=== PATIENT | male | born 1940 | race Caucasian/White ===

== ENCOUNTER 2025-10-28 13:02 | Inpatient (IN) ==
--- NOTE | 2025-10-28 13:48 | Emergency Department Note ---
Impression & Plan Weakness ED Provider Note CHIEF COMPLAINT: Weakness HISTORY OF PRESENTING ILLNESS: The patient is a pleasant, well-appearing, 85-year-old male with past medical history of chronic atrial fibrillation, on , who arrives to the emergency department with family for evaluation of left-sided weakness that started Friday. Patient reports having a dental extraction performed on Friday, with local anesthesia. He states since that time he has noted some left-sided weakness, with slight left facial droop, and slurred speech that reportedly began this morning. Patient states the symptoms have worsened over the last week, and today believes he requires evaluation for this. The patient was seen in the emergency department yesterday for evaluation of weakness and confusion. Patient was initially concern for a bladder infection, however does not report dysuria, fever. Family was concerned, and believes he requires evaluation for neurological event. REVIEW OF SYSTEMS: See HPI for pertinent positives and pertinent negatives. ALLERGIES: See below MEDICATIONS: See below PAST MEDICAL HISTORY: See below PHYSICAL EXAM: VITALS: Vitals are noted on the nurse's note and reviewed by myself. Vital signs stable. GENERAL: 85-year-old male, in no acute distress, nondiaphoretic, well-developed well-nourished. SKIN: The skin was without rashes, erythema, edema, or bruising. HEAD: Normocephalic atraumatic. EARS: External auditory canals clear, tympanic membranes pearly marcus without erythema or effusion bilaterally. No hemotympanum. EYES: Pupils equal round and reactive to light and accommodation. Conjunctivae without injection, sclerae without icterus. Extraocular movements intact. No nystagmus. NOSE: Patent, turbinates without inflammation or discharge. No sinus tenderness. MOUTH: Mucous membranes moist. No tonsillar hypertrophy. Pharynx without erythema or exudate. Uvula midline. Airway patent. Tongue does not deviate. NECK: Supple without nuchal rigidity. No lymphadenopathy. Cervical spine is nontender. No JVD. HEART: Irregular rate and rhythm without murmurs gallops or rubs. LUNGS: Clear to auscultation bilaterally without wheezes, rales or rhonchi. No retractions or accessory muscle use. ABDOMEN: Positive bowel sounds x 4. Soft, nontender, without masses or organomegaly. Isabel sign negative. No guarding or rebound tenderness. MUSCULOSKELETAL: No muscle atrophy, erythema, or edema noted. LUE strength 3/5, LLE strength 3/5. RUE, RLE, strength 5/5. Sensation intact to dull and sharp throughout. NEURO: Patient was alert and oriented to person place and time. No focal neurological deficits. DIFFERENTIAL DIAGNOSIS: Infection, dehydration, metabolic abnormality, hypo/hyperglycemia, electrolyte disturbance, anemia, hypoxia, cardiac sources, intracerebral event, toxicologic, neurologic, as well as other pathologies. ED COURSE AND MEDICAL DECISION MAKING: HISTORY FROM INDEPENDENT HISTORIAN: Family at bedside serving as secondary historian. MONITOR: Continuous air sampling and monitoring: Order was placed for continuous air sampling and monitoring. Patient was placed on the air sampling and monitoring and continuous pulse ox. Patient was noted to be in Atrial fibrillation at an initial rate of 75 bpm per my interpretation. EKG: EKG was interpreted by myself as atrial fibrillation, with nonspecific T wave abnormality. No significant change from previous of the previous day. INTERPRETATION OF LABS: I interpreted the labs with full lab results as below in the lab section of this note. Pertinent lab results discussed in the MDM section below. INTERPRETATION OF IMAGING: Imaging studies were interpreted by myself and read by radiology as per the imaging section of this note. MDM SUMMARY: The patient is a pleasant, 85-year-old male who arrives to the emergency department for evaluation of the above-stated complaint. Stroke workup was obtained, however patient was outside of the window for stroke alert, and telestroke evaluation due to last known well approximately Friday. Saline lock was established, lab work was obtained. CBC shows no leukocytosis, no anemia. Coags within normal limits. CMP is unremarkable, BUN and creatinine baseline for patient kidney function. Initial troponin 17, repeat 18. Urinalysis not concerning for infection. CT imaging of the head, was obtained due to the duration of the patient's symptoms. Imaging per my interpretation shows no hemorrhage, mass effect, or evidence of acute territorial ischemia by criteria. Patient is not a candidate for IV thrombolytics. Chest x-ray imaging was obtained which per my interpretation shows no acute cardiopulmonary process. EKG interpreted by myself as noted above. Patient will require admission for MRI imaging of the brain, to evaluate further for ischemic stroke. Patient was agreeable to admission. [facility] was consulted for admission, and accepted under their care. Please refer to their documentation for further patient workup and care. DIAGNOSIS: Weakness The patient's case was discussed with Dr. Sarkar, who agreed with my evaluation and treatment plan. The chart was completed utilizing [employer] Speech voice recognition software. Grammatical errors, random word insertions, pronoun errors, and incomplete sentences are an occasional consequence of this system due to software limitations, ambient noise, and hardware issues. Any formal questions or concerns about the content, text, or information contained within the body of this dictation should be directly addressed to the provider for clarification. Attending Attestation: I Guido Sarkar MD I have reviewed the advanced practitioner's documentation and agree with the plan of care. I accept the responsibility for the associated risk of managing the patient. I performed a substantive portion of the visit including involvement in all aspects of medical decision making. Evaluated and saw this patient the day previous. Evidently has developed from generalized weakness more left-sided weakness. Will be brought in for further evaluation for possible occult stroke given more focal deficits now. 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) Shingles Ischemic cardiomyopathy Hyperlipidemia Diabetes mellitus, type 2 Hypertension CAD (coronary artery disease) No blood products Surgical History Status post endovascular aneurysm repair (EVAR) (2014) Hx of parathyroidectomy History of tooth extraction History of quadruple bypass (2006) Family History Other No family history of adverse response to anesthesia Social History Smoking Status: Former smoker Tobacco Type: Cigarettes Second Hand Exposure: No; Do You Dip or Chew Tobacco: No; Hx Alcohol Use: No Hx Substance Use: No Preferred Language: Austrian Communication Ability: Effective Colored Liquid Plastic Applier Required: No Beliefs That Will Affect Care: Cheondoism Cheondoism Beliefs: Gnosticism- Will not accept blood products Current Living Situation: Family Current Living Situation Comment: grandson Feels Safe at Home: Yes Assistive Devices: Cane and Walker Allergies Allergies Allergy/AdvReac Type Severity Reaction Status Date / Time banana AdvReac Unknown Told to Unverified 09/01/25 15:10 avoid due to taking Metoprolol Succinate Home Meds Home Medications Medication Instructions Recorded Confirmed metoprolol succinate 50 mg 25 mg PO HS 04/06/25 10/28/25 tablet,extended release 24 hr metformin 500 mg tablet 1,000 mg PO BID 10/27/25 10/28/25 Previous Rx's Medication Instructions Recorded levetiracetam 500 mg tablet 500 mg PO BID #60 tabs 09/01/25 (Keppra) amoxicillin 500 mg-potassium 1 tab PO BID #10 tabs 11/08/25 clavulanate 125 mg tablet (Augmentin) apixaban 2.5 mg tablet (Eliquis) 2.5 mg PO BID #60 tabs 11/08/25 aspirin 81 mg tablet,delayed 81 mg PO DAILY #30 tabs 11/08/25 release atorvastatin 40 mg tablet 80 mg (2 x 40 mg) PO QAM #30 tabs 11/08/25 ibuprofen 400 mg tablet 400 mg PO Q8H 3 days #9 tabs 11/08/25 Results & Data (ED) Vital Signs Vital Signs - 24 hr 10/28/25 13:08 10/28/25 13:14 10/28/25 13:25 Temperature 36.6 C Temperature Source Temporal Artery Scan Pulse Rate 84 76 Respiratory Rate 18 Respiratory Depth Normal Blood Pressure 166/96 H Blood Pressure Mean 119 Pulse Oximetry 97 98 Oxygen Delivery Method Room Air Room Air Sepsis Recent Fever Within 48 Hours No Sepsis New/Unexplained Change in Mental Status No Sepsis Action Taken by Nursing No Action Required Home Medications Current Medication List: was personally reviewed by me Laboratory Data Attestation: I reviewed the patient's lab results. 11/08/25 10:19 11/08/25 10:19 Lab Results 10/28/25 10/28/25 10/28/25 Range/Units 13:40 18:24 18:25 WBC 5.95 (4.8-10.8) K/ul RBC 5.33 (4.70-6.10) M/uL Hgb 16.5 (14.0-18.0) g/dL Hct 48.4 (42.0-52.0) % MCV 90.8 (80.0-100.0) fL MCH 31.0 (25.0-34.0) pg MCHC 34.1 (32.0-36.0) g/dL RDW Std Deviation 39.8 (36.4-46.3) fL RDW Coeff of Cierra 12.0 (11.5-14.5) % Plt Count 192 (130-400) K/uL MPV 9.9 (9.4-12.4) fL Immature Gran % (Auto) 0.2 % Neut % (Auto) 70.7 % Lymph % (Auto) 21.7 % [place] % (Auto) 6.6 % Eos % (Auto) 0.3 % Baso % (Auto) 0.5 % Neut # (Auto) 4.21 (1.40-6.50) K/uL Lymph # (Auto) 1.29 (1.20-3.40) K/uL [place] # (Auto) 0.39 (0.11-0.59) K/uL Eos # (Auto) 0.02 (0.00-0.50) K/uL Baso # (Auto) 0.03 (0.00-0.20) K/uL Immature Gran # (Auto) 0.01 (0.01-0.20) K/uL PT Cancelled 11.5 INR Cancelled 1.1 APTT Cancelled 28 PTT Ratio Cancelled 1.0 Sodium 135 L (136-145) mmol/L Potassium 5.0 (3.5-5.1) mmol/L Chloride 102 (98-107) mmol/L Carbon Dioxide 25 (21-32) mmol/L Anion Gap 8 (3-11) BUN 34 H (6-23) mg/dl Creatinine 1.51 H (0.6-1.4) mg/dl Est Cr Clr Drug Dosing 34.4 ml/min eGFR 45.26 BUN/Creatinine Ratio 22.5 H (10-20) Glucose 183 H (70-99(Fasting)) mg/dl POC Glucose (70-99) mg/dl Estimat Average Glucose mg/dl Hemoglobin A1c (4.5-5.6) % Calcium 10.0 (8.6-10.3) mg/dl Magnesium 2.1 (1.7-2.4) mg/dl Total Bilirubin 1.0 (0.2-1.0) mg/dl AST 20 (13-39) U/L ALT 9 (7-52) U/L Alkaline Phosphatase 62 (34-104) U/L Troponin I High Sens 17.0 D 18.0 (0-20) pg/ml Total Protein 8.0 (6.0-8.3) gm/dl Albumin 4.3 (3.4-5.0) gm/dl Globulin 3.7 (2.5-4.0) gm/dl Albumin/Globulin Ratio 1.2 (0.9-2) Triglycerides (0-150) mg/dl Cholesterol (0-200) mg/dl LDL Cholesterol, Calc mg/dl VLDL Cholesterol, Calc (0-30) mg/dl HDL Cholesterol mg/dl Cholesterol/HDL Ratio (0-5) Urine Color Urine Appearance (Clear) Urine pH (4.5-7.5) Ur Specific [place] (1.000-1.030) Urine Protein (Negative) Urine Glucose (UA) (Negative) Urine Ketones (Negative) Urine Blood (Negative) Urine Nitrite (Negative) Urine Bilirubin (Negative) Urine Urobilinogen (Negative) Ur Leukocyte Esterase (Negative) Urine WBC (Auto) (0-5) /hpf Urine RBC (Auto) (0-2) /hpf U Hyaline Cast (Auto) (0-2) /lpf U Epithel Cells (Auto) (0-2) /hpf Urine Bacteria (Auto) (None Seen) Urine Comment 10/28/25 10/28/25 10/29/25 Range/Units 18:50 Unknown 06:09 WBC 4.43 L (4.8-10.8) K/ul RBC 5.02 (4.70-6.10) M/uL Hgb 15.3 (14.0-18.0) g/dL Hct 45.1 (42.0-52.0) % MCV 89.8 (80.0-100.0) fL MCH 30.5 (25.0-34.0) pg MCHC 33.9 (32.0-36.0) g/dL RDW Std Deviation 39.9 (36.4-46.3) fL RDW Coeff of Cierra 12.1 (11.5-14.5) % Plt Count 165 (130-400) K/uL MPV 9.8 (9.4-12.4) fL Immature Gran % (Auto) 0.5 % Neut % (Auto) 55.4 % Lymph % (Auto) 30.5 % [place] % (Auto) 11.1 % Eos % (Auto) 1.6 % Baso % (Auto) 0.9 % Neut # (Auto) 2.46 (1.40-6.50) K/uL Lymph # (Auto) 1.35 (1.20-3.40) K/uL [place] # (Auto) 0.49 (0.11-0.59) K/uL Eos # (Auto) 0.07 (0.00-0.50) K/uL Baso # (Auto) 0.04 (0.00-0.20) K/uL Immature Gran # (Auto) 0.02 (0.01-0.20) K/uL PT INR APTT PTT Ratio Sodium 138 (136-145) mmol/L Potassium 4.1 (3.5-5.1) mmol/L Chloride 105 (98-107) mmol/L Carbon Dioxide 25 (21-32) mmol/L Anion Gap 8 (3-11) BUN 32 H (6-23) mg/dl Creatinine 1.55 H (0.6-1.4) mg/dl Est Cr Clr Drug Dosing 33.2 ml/min eGFR 43.86 BUN/Creatinine Ratio 20.6 H (10-20) Glucose 141 H (70-99(Fasting)) mg/dl POC Glucose 99 (70-99) mg/dl Estimat Average Glucose 166 mg/dl Hemoglobin A1c 7.4 H (4.5-5.6) % Calcium 9.1 (8.6-10.3) mg/dl Magnesium 2.1 (1.7-2.4) mg/dl Total Bilirubin (0.2-1.0) mg/dl AST (13-39) U/L ALT (7-52) U/L Alkaline Phosphatase (34-104) U/L Troponin I High Sens (0-20) pg/ml Total Protein (6.0-8.3) gm/dl Albumin (3.4-5.0) gm/dl Globulin (2.5-4.0) gm/dl Albumin/Globulin Ratio (0.9-2) Triglycerides 86 (0-150) mg/dl Cholesterol 230 H (0-200) mg/dl LDL Cholesterol, Calc 175 mg/dl VLDL Cholesterol, Calc 17 (0-30) mg/dl HDL Cholesterol 38 mg/dl Cholesterol/HDL Ratio 6.1 H (0-5) Urine Color Yellow Urine Appearance Clear (Clear) Urine pH 5.5 (4.5-7.5) Ur Specific [place] 1.009 (1.000-1.030) Urine Protein Trace H (Negative) Urine Glucose (UA) Negative (Negative) Urine Ketones Negative (Negative) Urine Blood 1+ H (Negative) Urine Nitrite Negative (Negative) Urine Bilirubin Negative (Negative) Urine Urobilinogen Negative (Negative) Ur Leukocyte Esterase Negative (Negative) Urine WBC (Auto) 0-5 (0-5) /hpf Urine RBC (Auto) 0-2 (0-2) /hpf U Hyaline Cast (Auto) 0-2 (0-2) /lpf U Epithel Cells (Auto) 0-2 (0-2) /hpf Urine Bacteria (Auto) None Seen (None Seen) Urine Comment 10/29/25 Range/Units 08:09 WBC (4.8-10.8) K/ul RBC (4.70-6.10) M/uL Hgb (14.0-18.0) g/dL Hct (42.0-52.0) % MCV (80.0-100.0) fL MCH (25.0-34.0) pg MCHC (32.0-36.0) g/dL RDW Std Deviation (36.4-46.3) fL RDW Coeff of [place] (11.5-14.5) % Plt Count (130-400) K/uL MPV (9.4-12.4) fL Immature Gran % (Auto) % Neut % (Auto) % Lymph % (Auto) % [place] % (Auto) % Eos % (Auto) % Baso % (Auto) % Neut # (Auto) (1.40-6.50) K/uL Lymph # (Auto) (1.20-3.40) K/uL [place] # (Auto) (0.11-0.59) K/uL Eos # (Auto) (0.00-0.50) K/uL Baso # (Auto) (0.00-0.20) K/uL Immature Gran # (Auto) (0.01-0.20) K/uL PT INR APTT PTT Ratio Sodium (136-145) mmol/L Potassium (3.5-5.1) mmol/L Chloride (98-107) mmol/L Carbon Dioxide (21-32) mmol/L Anion Gap (3-11) BUN (6-23) mg/dl Creatinine (0.6-1.4) mg/dl Est Cr Clr Drug Dosing ml/min eGFR BUN/Creatinine Ratio (10-20) Glucose (70-99(Fasting)) mg/dl POC Glucose 142 H (70-99) mg/dl Estimat Average Glucose mg/dl Hemoglobin A1c (4.5-5.6) % Calcium (8.6-10.3) mg/dl Magnesium (1.7-2.4) mg/dl Total Bilirubin (0.2-1.0) mg/dl AST (13-39) U/L ALT (7-52) U/L Alkaline Phosphatase (34-104) U/L Troponin I High Sens (0-20) pg/ml Total Protein (6.0-8.3) gm/dl Albumin (3.4-5.0) gm/dl Globulin (2.5-4.0) gm/dl Albumin/Globulin Ratio (0.9-2) Triglycerides (0-150) mg/dl Cholesterol (0-200) mg/dl LDL Cholesterol, Calc mg/dl VLDL Cholesterol, Calc (0-30) mg/dl HDL Cholesterol mg/dl Cholesterol/HDL Ratio (0-5) Urine Color Urine Appearance (Clear) Urine pH (4.5-7.5) Ur Specific [place] (1.000-1.030) Urine Protein (Negative) Urine Glucose (UA) (Negative) Urine Ketones (Negative) Urine Blood (Negative) Urine Nitrite (Negative) Urine Bilirubin (Negative) Urine Urobilinogen (Negative) Ur Leukocyte Esterase (Negative) Urine WBC (Auto) (0-5) /hpf Urine RBC (Auto) (0-2) /hpf U Hyaline Cast (Auto) (0-2) /lpf U Epithel Cells (Auto) (0-2) /hpf Urine Bacteria (Auto) (None Seen) Urine Comment Administered Medications Discontinued Medications Al Hydrox/Mg Hydrox/Simethicone (Aluminum/Magnesium Susp 30 Ml Udc) 15 ml PO Q6H PRN PRN Reason: Heartburn Stop: 12/04/25 20:01 Last Admin: 11/04/25 20:29 Dose: 15 ml Documented By: NINFA Amlodipine Besylate (Amlodipine Besylate 5 Mg Tab) 2.5 mg PO QAM [place] Stop: 11/28/25 10:54 Last Admin: 11/08/25 09:05 Dose: 2.5 mg Documented By: carla Admin: 11/07/25 07:59 Dose: 2.5 mg Documented By: Admin: 11/06/25 07:49 Dose: 2.5 mg Documented By: Admin: 11/05/25 08:01 Dose: 2.5 mg Documented By: Admin: 11/04/25 08:11 Dose: 2.5 mg Documented By: Admin: 11/03/25 08:49 Dose: 5 mg Documented By: Admin: 11/02/25 09:18 Dose: 5 mg Documented By: Admin: 11/01/25 08:23 Dose: 2.5 mg Documented By: nigel Admin: 10/31/25 07:47 Dose: 2.5 mg Documented By: Admin: 10/30/25 07:42 Dose: 2.5 mg Documented By: Admin: 10/29/25 11:18 Dose: 2.5 mg Documented By: MAITE Apixaban (Apixaban 5 Mg Tablet) 5 mg PO BID [place] Stop: 11/27/25 20:59 Last Admin: 10/29/25 10:11 Dose: 5 mg Documented By: Admin: 10/28/25 21:41 Dose: 5 mg Documented By: CHANDANA Apixaban (Apixaban 2.5 Mg Tab) 2.5 mg PO BID [place] Stop: 11/28/25 20:59 Last Admin: 11/08/25 09:06 Dose: 2.5 mg Documented By: tca Admin: 11/07/25 20:47 Dose: 2.5 mg Documented By: Admin: 11/07/25 07:59 Dose: 2.5 mg Documented By: Admin: 11/06/25 21:29 Dose: 2.5 mg Documented By: Admin: 11/06/25 07:49 Dose: 2.5 mg Documented By: Admin: 11/05/25 20:31 Dose: 2.5 mg Documented By: Admin: 11/05/25 08:01 Dose: 2.5 mg Documented By: Admin: 11/04/25 20:29 Dose: 2.5 mg Documented By: Admin: 11/04/25 08:11 Dose: 2.5 mg Documented By: Admin: 11/03/25 21:29 Dose: 2.5 mg Documented By: Admin: 11/03/25 08:49 Dose: 2.5 mg Documented By: Admin: 11/02/25 19:59 Dose: 2.5 mg Documented By: Admin: 11/02/25 09:17 Dose: 2.5 mg Documented By: Admin: 11/01/25 20:13 Dose: 2.5 mg Documented By: Admin: 11/01/25 08:22 Dose: 2.5 mg Documented By: nigel Admin: 10/31/25 20:23 Dose: 2.5 mg Documented By: Admin: 10/31/25 07:48 Dose: 2.5 mg Documented By: Admin: 10/30/25 20:35 Dose: 2.5 mg Documented By: Admin: 10/30/25 07:45 Dose: 2.5 mg Documented By: AUTH[employer]IV[employer] Admin: 10/29/25 21:02 Dose: 2.5 mg Documented By: MARYANN Aspirin (Aspirin 81 Mg Ectab) 81 mg PO DAILY [place] Stop: 11/27/25 18:38 Last Admin: 11/08/25 09:06 Dose: 81 mg Documented By: tca Admin: 11/07/25 07:59 Dose: 81 mg Documented By: Admin: 11/06/25 07:50 Dose: 81 mg Documented By: Admin: 11/05/25 08:01 Dose: 81 mg Documented By: Admin: 11/04/25 08:10 Dose: 81 mg Documented By: Admin: 11/03/25 08:49 Dose: 81 mg Documented By: Admin: 11/02/25 09:18 Dose: 81 mg Documented By: Admin: 11/01/25 08:23 Dose: 81 mg Documented By: nigel Admin: 10/31/25 07:47 Dose: 81 mg Documented By: Admin: 10/30/25 07:44 Dose: 81 mg Documented By: Admin: 10/29/25 11:18 Dose: 81 mg Documented By: Admin: 10/28/25 19:41 Dose: 81 mg Documented By: CHANDANA Atorvastatin Calcium (Atorvastatin 40 Mg Tab) 40 mg PO QAM [place] Stop: 11/28/25 08:59 Last Admin: 10/30/25 07:44 Dose: 40 mg Documented By: Admin: 10/29/25 10:11 Dose: 40 mg Documented By: MAITE Atorvastatin Calcium (Atorvastatin 40 Mg Tab) 80 mg PO QAM [facility] Stop: 11/29/25 08:59 Last Admin: 11/08/25 09:05 Dose: 80 mg Documented By: carla Admin: 11/07/25 07:59 Dose: 80 mg Documented By: Admin: 11/06/25 07:49 Dose: 80 mg Documented By: Admin: 11/05/25 08:01 Dose: 80 mg Documented By: Admin: 11/04/25 08:10 Dose: 80 mg Documented By: Admin: 11/03/25 08:49 Dose: 80 mg Documented By: Admin: 11/02/25 09:18 Dose: 80 mg Documented By: Admin: 11/01/25 08:22 Dose: 80 mg Documented By: nigel Admin: 10/31/25 07:49 Dose: 80 mg Documented By: Admin: 10/30/25 09:48 Dose: 80 mg Documented By: SAKINA Sodium Chloride (Nss) 1,000 mls @ 80 mls/hr IV .[id number] [place] Stop: 10/29/25 04:44 Last Infusion: 10/29/25 10:14 Dose: Infused Documented By: Admin: 10/28/25 18:18 Dose: 80 mls/hr Documented By: DARLENE Insulin Aspart (Insulin Aspart Per Unit Charge) 0 units SC ACHS [place] Stop: 12/03/25 20:59 Last Admin: 11/08/25 13:51 Dose: Not Given Documented By: carla Co-signed By: PRAFUL Admin: 11/08/25 07:30 Dose: Not Given Documented By: tca Co-signed By: TLM Admin: 11/07/25 22:10 Dose: Not Given Documented By: HARJIT Co-signed By: SHAZIAW Admin: 11/07/25 16:54 Dose: Not Given Documented By: Admin: 11/07/25 12:29 Dose: Not Given Documented By: SHAQUILLE Co-signed By: LMC Admin: 11/07/25 08:00 Dose: Not Given Documented By: Admin: 11/06/25 21:50 Dose: Not Given Documented By: STEFAN Co-signed By: MICHELE Admin: 11/06/25 17:08 Dose: 1 units Documented By: SHAQUILLE Co-signed By: MEHREEN Admin: 11/06/25 11:28 Dose: Not Given Documented By: Admin: 11/06/25 08:39 Dose: Not Given Documented By: Admin: 11/05/25 21:54 Dose: Not Given Documented By: STEFAN Co-signed By: CHILANGO Admin: 11/05/25 16:59 Dose: 1 units Documented By: SHAQUILLE Co-signed By: KRISTINE Admin: 11/05/25 13:12 Dose: 1 units Documented By: ADELINE Co-signed By: SAKINA Admin: 11/05/25 09:14 Dose: Not Given Documented By: Admin: 11/04/25 20:29 Dose: 1 units Documented By: FIORDALIZAF Co-signed By: ACO Admin: 11/04/25 17:04 Dose: Not Given Documented By: Admin: 11/04/25 12:48 Dose: 1 units Documented By: KMC Co-signed By: shaww Admin: 11/04/25 10:10 Dose: Not Given Documented By: Admin: 11/03/25 21:29 Dose: 4 units Documented By: ANJELICA Co-signed By: shubham Levetiracetam (Levetiracetam 500 Mg Tab) 500 mg PO BID [place] Stop: 11/27/25 20:59 Last Admin: 11/08/25 09:04 Dose: 500 mg Documented By: tca Admin: 11/07/25 20:47 Dose: 500 mg Documented By: Admin: 11/07/25 07:59 Dose: 500 mg Documented By: Admin: 11/06/25 21:29 Dose: 500 mg Documented By: Admin: 11/06/25 07:50 Dose: 500 mg Documented By: Admin: 11/05/25 20:31 Dose: 500 mg Documented By: Admin: 11/05/25 08:01 Dose: 500 mg Documented By: Admin: 11/04/25 20:29 Dose: 500 mg Documented By: Admin: 11/04/25 08:11 Dose: 500 mg Documented By: Admin: 11/03/25 21:29 Dose: 500 mg Documented By: Admin: 11/03/25 08:49 Dose: 500 mg Documented By: Admin: 11/02/25 19:59 Dose: 500 mg Documented By: Admin: 11/02/25 09:18 Dose: 500 mg Documented By: Admin: 11/01/25 20:13 Dose: 500 mg Documented By: Admin: 11/01/25 08:22 Dose: 500 mg Documented By: jlz Admin: 10/31/25 20:23 Dose: 500 mg Documented By: Admin: 10/31/25 07:48 Dose: 500 mg Documented By: [employer] Admin: 10/30/25 20:35 Dose: 500 mg Documented By: Admin: 10/30/25 07:44 Dose: 500 mg Documented By: [employer] Admin: 10/29/25 21:01 Dose: 500 mg Documented By: Admin: 10/29/25 10:11 Dose: 500 mg Documented By: Admin: 10/28/25 21:42 Dose: 500 mg Documented By: LCD Metformin HCl (Metformin Hcl 500 Mg Tab) 1,000 mg PO BIDM [place] Stop: 12/03/25 17:39 Last Admin: 11/08/25 08:46 Dose: 1,000 mg Documented By: tca Admin: 11/07/25 16:53 Dose: 1,000 mg Documented By: Admin: 11/07/25 09:16 Dose: 1,000 mg Documented By: Admin: 11/06/25 17:09 Dose: 1,000 mg Documented By: Admin: 11/06/25 07:49 Dose: 1,000 mg Documented By: Admin: 11/05/25 17:08 Dose: 1,000 mg Documented By: Admin: 11/05/25 08:01 Dose: 1,000 mg Documented By: Admin: 11/04/25 17:23 Dose: 1,000 mg Documented By: Admin: 11/04/25 08:09 Dose: 1,000 mg Documented By: KMBasil Admin: 11/03/25 21:12 Dose: Not Given Documented By: ANJELICA Metoprolol Succinate (Metoprolol Succ 25mg Ext Rel Tab) 25 mg PO HS [place] Stop: 11/27/25 20:59 Last Admin: 11/07/25 20:47 Dose: 25 mg Documented By: Admin: 11/06/25 21:29 Dose: 25 mg Documented By: Admin: 11/05/25 20:31 Dose: 25 mg Documented By: Admin: 11/04/25 20:29 Dose: 25 mg Documented By: Admin: 11/03/25 21:29 Dose: 25 mg Documented By: Admin: 11/02/25 19:59 Dose: 25 mg Documented By: Admin: 11/01/25 20:13 Dose: 25 mg Documented By: Admin: 10/31/25 20:23 Dose: 25 mg Documented By: Admin: 10/30/25 20:35 Dose: 25 mg Documented By: Admin: 10/29/25 21:01 Dose: 25 mg Documented By: Admin: 10/28/25 21:41 Dose: 25 mg Documented By: CHANDANA Miscellaneous Information (Stroke Patient Discharge) 1 each N/A NOW STA Stop: 11/08/25 10:37 Last Admin: 11/08/25 11:38 Dose: 1 each Documented By: carla Miscellaneous Information (Stroke Patient Discharge) 1 each N/A NOW STA Stop: 11/08/25 14:47 Last Admin: 11/08/25 15:50 Dose: Not Given Documented By: tca Discharge Plan Visit Data Chief Complaint: Weakness Stated Complaint: PARTIAL WEAK, LT SIDE, CHECK FOR STROKE, CARDIOLOG ED Provider: Guido Sarkar ED Midlevel Provider: Elsa Valentine Discharge Problem: Weakness Patient Disposition: Admitted As Inpatient Condition: Fair Discharge Instructions Interventions: ED Discharge Assessment Last Done: 10/28/25 18:39
[2025-10-28 14:03] LABS: Hematocrit (blood only) 48.4 % (42.0-52.0); Hemoglobin 16.5 g/dL (14.0-18.0); Immature Granulocytes # (auto) 0.01 K/uL (0.01-0.20); Immature Granulocytes % (auto) 0.2 %; Mean Corpuscular Hemoglobin 31.0 pg (25.0-34.0); Mean Corpuscular Volume 90.8 fL (80.0-100.0); Platelet Count 192 K/uL (130-400); RDW Standard Deviation 39.8 fL (36.4-46.3); Red Blood Count 5.33 M/uL (4.70-6.10); White Blood Count 5.95 K/ul (4.8-10.8)
[2025-10-28 14:21] LABS: Alanine Aminotransferase 9.0 U/L (7-52); Albumin Globulin Ratio 1.2 (0.9-2); Albumin Level 4.3 gm/dl (3.4-5.0); Alkaline Phosphatase 62.0 U/L (34-104); Anion Gap 8.0 (3-11); Bilirubin,Total 1.0 mg/dl (0.2-1.0); Blood Urea Nitrogen 34.0 mg/dl (6-23); Calcium 10.0 mg/dl (8.6-10.3); Carbon Dioxide 25.0 mmol/L (21-32); Chloride 102.0 mmol/L (98-107); Creatinine Clr Calc Pharmacy 34.4 ml/min; Globulin 3.7 gm/dl (2.5-4.0); Glucose 183.0 mg/dl (70-99(Fasting)); Magnesium 2.1 mg/dl (1.7-2.4); Potassium 5.0 mmol/L (3.5-5.1); Sodium 135.0 mmol/L (136-145); Total Protein 8.0 gm/dl (6.0-8.3)
--- NOTE | 2025-10-28 14:21 | XRay Report ---
XR chest 1V portable HISTORY: 85 years-old Male neuro deficit, acute stroke suspected COMPARISON: Chest radiograph 10/27/2025 TECHNIQUE: AP view of the chest FINDINGS: Cardiac silhouette is enlarged. Median sternotomy. Atherosclerosis of the aorta. Unchanged mild right hemidiaphragmatic elevation. No pneumothorax, pleural effusion, airspace consolidation or pulmonary edema. Left mid lung calcified granuloma again seen. Bones appear grossly intact. IMPRESSION: No acute process. ACT 112: Negative or not required by law. The above report was generated using voice recognition software. It may contain grammatical, syntax o r spelling errors. Electronically signed by: Himanshu Nettles M.D. 10/28/2025 2:20 PM
--- NOTE | 2025-10-28 14:41 | CT Scan Report ---
CT SCAN OF THE BRAIN WITHOUT IV CONTRAST CLINICAL HISTORY: Strokelike symptoms. Neurological deficit. COMPARISON STUDY: CT of the brain dated 04/06/2025 TECHNIQUE: Unenhanced CT scan of the brain is performed from the vertex to the skull base. Images are reviewed in the axial, sagittal, coronal planes. A dose lowering technique was utilized adhering to the principles of ALARA. CT DOSE: 547.75 mGy.cm FINDINGS: Brain parenchyma: There is age-related involutional change noting mild subcortical and periventricula r microangiopathic disease. There is no hemorrhage, mass effect, or evidence of acute territorial isc hemia by CT criteria. Harris-white matter differentiation is preserved. No extra-axial fluid collection is seen. Ventricles, sulci, cisterns: Prominent secondary to involutional change. Intracranial vasculature: There is atherosclerotic calcification of the cavernous carotid and vertebr al arteries. Calvarium: Unremarkable. Sinuses and mastoids: Mild mucosal thickening is seen in the left frontal sinuses and the left anteri or ethmoid sinuses. The mastoid air cells are well pneumatized. Orbits: The bony orbits are grossly intact. IMPRESSION: There is no hemorrhage, mass effect, or evidence of acute territorial ischemia by CT mil hernandez. ACT 112: Negative or not required by law. Electronically signed by: Felix Pandya M.D. 10/28/2025 2:40 PM
--- NOTE | 2025-10-28 16:17 | History & Physical Report ---
Date of Service October 28, 2025 Assessment & Plan (1) Left hemiparesis: (2) Diabetes mellitus, type 2: (3) Seizure: (4) MILTON (acute kidney injury): (5) Chronic atrial fibrillation: Plan 85 yo M who presents with left sided weakness, left facial droop x 1 week #Left hemiparesis/facial droop - Place in observation to med tele - NPO - perform bedside swallow assessment, if passes, can advance to diabetic diet - MRI brain w/o contrast - Update 2D Echo - Start ASA 81mg daily - Lipid panel in AM - HS trop 17, stat repeat pending - PT/OT eval and treat - Start atorvastatin 40mg daily - Neuro checks q2 - Stroke scale qshift #DMT2 - Continue metformin 1000mg BID - Diabetic diet - Accuchecks ac and hs - A1c ordered for tomorrow AM #Seizure - Continue Keppra #Chronic afib - Continue Metoprolol Succ - Continue Eliquis #CKD - Baseline Cr 1.1-1.3, up slightly today to 1.5 - 1L NSS @ 80 ml/hr x1 bag - Repeat BMP in AM Above plan of care has been d/w Dr. Singer who will also see and evaluate this patient. Further orders will be implemented as clinically warranted. History of Present Illness Chief Complaint: Weakness Primary Care Provider: Jerri Call PA-C Armando is an 85 yo M with a pmhx of DMT2, Afib, h/o seizure-like activity on Keppra, CKD and h/o CHF who presents to the ER today accompanied by a friend for evaluation of left sided weakness. Symptoms started approx 1 day after having a tooth extracted which was performed 1 week ago. He initially thought it could be related to the novocaine administered for the procedure but when the symptoms persisted, friends/family encouraged him to seek evaluation. He has endorsed difficulty ambulating related to his weakness. He denies difficulty swallowing or slurred speech. He denies dysuria, fever, chills, chest pain, dyspnea, cough, abd pain, n/v/d. He has no prior h/o AK/stenting/PPM or CVA. He denies taking aspirin. Does have a h/o stroke-like symptoms that prompted an admission back in March 2025 for which his MRI was negative. Was found to have new onset afib. Echo during that admission noted to have LVEF 40-45% with global hypokinesis of left ventricle. EEG was abnormal and suggestive of epileptic discharge for which he was started on Keppra. His work up today notes a negative trop, EKG afib/nonacute, mild MILTON with a creat of 1.51, otherwise labs unremarkable. He was deemed a nonTPA candidate given duration of symptoms. He has been referred for observation for further care. Allergies Allergy/AdvReac Type Severity Reaction Status Date / Time banana AdvReac Unknown Told to Unverified 09/01/25 15:10 avoid due to taking Metoprolol Succinate Home Medications Medication Instructions Recorded Confirmed Type metoprolol succinate 50 mg 25 mg PO HS 04/06/25 10/28/25 History tablet,extended release 24 hr apixaban 5 mg tablet (Eliquis) 5 mg PO BID #60 tabs 04/09/25 10/28/25 Rx levetiracetam 500 mg tablet 500 mg PO BID #60 tabs 09/01/25 10/28/25 Rx (Keppra) amoxicillin 500 mg capsule 500 mg PO TID 10/27/25 10/28/25 History metformin 500 mg tablet 1,000 mg PO BID 10/27/25 10/28/25 History Past Med/Surg History Problem List (Updated 10/28/25 @ 16:35 by Anupama Ruggiero PA-C) Chronic atrial fibrillation Left hemiparesis Weakness (Acute) Uncontrolled diabetes mellitus with hyperglycemia Hyperglycemia (Acute) Seizure (Acute) Stroke-like symptoms (Acute) Metabolic encephalopathy MILTON (acute kidney injury) New onset atrial fibrillation Hypotension (Acute) CHF (congestive heart failure) (Chronic) Renal insufficiency (Chronic) Medical History Cardiomyopathy Chronic kidney disease 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) Shingles Ischemic cardiomyopathy Hyperlipidemia Diabetes mellitus, type 2 Hypertension CAD (coronary artery disease) No blood products Surgical History Status post endovascular aneurysm repair (EVAR) (2014) Hx of parathyroidectomy History of tooth extraction History of quadruple bypass (2006) Family History Other No family history of adverse response to anesthesia Social History Smoking Status: Former smoker Tobacco Type: Cigarettes Second Hand Exposure: No; Do You Dip or Chew Tobacco: No; Hx Alcohol Use: No Hx Substance Use: No Preferred Language: Serbian Communication Ability: Effective 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 +left sided weakness Denies fever, chills, fatigue, headache, nasal congestion, sore throat, cough, chest pain, shortness of breath, palpitations, orthopnea, PND, abdominal pain, n/v/d, constipation, dysuria, hematuria, frequency, back pain, joint pain or swelling, easy bruising or bleeding, skin lesions or rashes. Physical Exam 2 Physical Exam: GENERAL: 85 yo elderly thin WM. A&Ox4. No distress. EYES: EOMI. PERRLA. Anicteric. HENT: Moist mucous membranes. No scleral icterus. No cervical lymphadenopathy. LUNGS: Clear to auscultation bilaterally. No accessory muscle use. No W/R/R. CARDIOVASCULAR: Irregularly irreg +murmur ABDOMEN: Soft, non-tender and non-distended. BS normoactive x 4 quad. EXTREMITIES: No edema. Non-tender. Peripheral pulses +2/4. NEUROLOGIC: Subtle L facial droop. LUE and LLE weakness. CN II-XII grossly intact. PSYCHIATRIC: Cooperative. Appropriate mood and affect. SKIN: Warm, dry, intact. No rashes or lesions. Results & Data Results & Data Vital Signs (Past 12 Hours) Vital Signs Temp Pulse Resp BP Pulse Ox O2 Del Method 10/28/25 14:12 74 10/28/25 14:00 79 15 10/28/25 13:51 75 21 10/28/25 13:42 78 20 99 10/28/25 13:30 80 20 98 10/28/25 13:30 154/107 H 10/28/25 13:25 76 10/28/25 13:24 78 97 10/28/25 13:20 150/109 H 10/28/25 13:14 98 Room Air 10/28/25 13:08 36.6 C 84 18 166/96 H 97 Room Air Laboratory Results 10/28/25 13:40 10/28/25 13:40 Diagnostic Findings Chest X-Ray 10/28/25 13:49 XR chest 1V portable HISTORY: 85 years-old Male neuro deficit, acute stroke suspected COMPARISON: Chest radiograph 10/27/2025 TECHNIQUE: AP view of the chest FINDINGS: Cardiac silhouette is enlarged. Median sternotomy. Atherosclerosis of the aorta. Unchanged mild right hemidiaphragmatic elevation. No pneumothorax, pleural effusion, airspace consolidation or pulmonary edema. Left mid lung calcified granuloma again seen. Bones appear grossly intact. IMPRESSION: No acute process. ACT 112: Negative or not required by law. The above report was generated using voice recognition software. It may contain grammatical, syntax or spelling errors. Electronically signed by: Himanshu Nettles M.D. 10/28/2025 2:[address] 10/28/25 13:49 CT SCAN OF THE BRAIN WITHOUT IV CONTRAST CLINICAL HISTORY: Strokelike symptoms. Neurological deficit. COMPARISON STUDY: CT of the brain dated 04/06/2025 TECHNIQUE: Unenhanced CT scan of the brain is performed from the vertex to the skull base. Images are reviewed in the axial, sagittal, coronal planes. A dose lowering technique was utilized adhering to the principles of ALARA. CT DOSE: 547.75 mGy.cm FINDINGS: Brain parenchyma: There is age-related involutional change noting mild subcortical and periventricular microangiopathic disease. There is no hemorrhage, mass effect, or evidence of acute territorial ischemia by CT criteria. Harris-white matter differentiation is preserved. No extra-axial fluid collection is seen. Ventricles, sulci, cisterns: Prominent secondary to involutional change. Intracranial vasculature: There is atherosclerotic calcification of the cavernous carotid and vertebral arteries. Calvarium: Unremarkable. Sinuses and mastoids: Mild mucosal thickening is seen in the left frontal sinuses and the left anterior ethmoid sinuses. The mastoid air cells are well pneumatized. Orbits: The bony orbits are grossly intact. IMPRESSION: There is no hemorrhage, mass effect, or evidence of acute territorial ischemia by CT criteria. ACT 112: Negative or not required by law. Electronically signed by: Felix Pandya M.D. 10/28/2025 2:40 PM Code Status & VTE Plan Code Status DNR/DNI Supervising Physician Co-Signing Physician Notes PA Supervision Note: I personally saw and examined the patient. I verified all byers points and agree with INOCENCIA Ruggiero with the following exceptions and/or additions: S-this patient is an 85-year-old male with a history of seizure disorder, DM2, CKD, atrial fibrillation on Eliquis, and chronic HFpEF who presents to the ED with 5 days of left sided weakness since undergoing a dental procedure. He initially thought maybe it was from anesthesia and friends encouraged him to come to the ED. He denies any facial droop or speech issues, no headache. No heart palpitations, chest pain, shortness of breath. He has been able to walk with a walker but has a lot of weakness in the left arm and left leg. History and ROS otherwise reviewed as above. Being admitted for workup for stroke O- Vitals reviewed Gen: [AAOx3, NAD] HEENT: [anicteric sclerae, EOMI, PERRLA, edentulous bottom] CV: [RRR no mgr nl S1S2] Pulm: [CTAB no wcr] Abd: [+BS soft NT ND no masses or hernias] Ext: [no edema] Skin: [no rashes, warm/dry] Neuro: [4/5 strength in left upper and left lower extremities throughout, CN II through XII intact except perhaps mild left-sided facial droop] CBC, BMP, ECG, CT head reviewed A/G-27-nd[age]-old male here with left-sided weakness x 5 days, not a candidate for thrombectomy or TNKase, but likely with subacute ischemic stroke - Admit for MRI brain, stroke workup - Check MRA head and neck - Echo with bubble study, telemetry monitoring for arrhythmia although already known to have atrial fibrillation on Eliquis - Add aspirin to his Eliquis, high intensity statin, check lipid panel - BP control, diabetes control Neurochecks, PT/OT/speech therapy PG Care Time/CCT Total # of Minutes Spent Total Time Spent with Patient: Total time spent is greater than 50% in coordination of care (as documented) at patient's floor/unit and/or counseling patient: 80 minutes Coding Level of Care Code 07035 INT INP/OBS CARE 3/75MIN Diagnoses Left hemiparesis G81.94 Diabetes mellitus, type 2 E11.9 Seizure R56.9 MILTON (acute kidney injury) N17.9 Chronic atrial fibrillation I48.20
[2025-10-28 17:51] LABS: Appearance Urine Clear (Clear); Bacteria Urine Automated None Seen (None Seen); Cast Urine Automated 0-2 /lpf (0-2); Epithelial Cell Urine Auto 0-2 /hpf (0-2); Glucose Urine UA Negative (Negative); RBC Urine Automated 0-2 /hpf (0-2); WBC Urine Automated 0-5 /hpf (0-5)
[2025-10-28] MEDS: SODIUM CHLORIDE 0.9% 1,000 ML IV SCH (18:18)
[2025-10-28] MEDS ORDERED: PHARMACIST DISCHARGE MED REC CONSULT PRN (18:39)
[2025-10-28] MEDS ORDERED: ACETAMINOPHEN 325 MG TAB PO PRN (18:39)
[2025-10-28] MEDS ORDERED: ASPIRIN 81 MG ECTAB PO ONE (18:50)
[2025-10-28 19:17] LABS: INR 1.1 (0.9-1.1); Partial Thromboplastin Time 28 Seconds (21-31); Prothrombin Time 11.5 Seconds (9.0-12.0)
[2025-10-28] MEDS: ASPIRIN 81 MG ECTAB PO SCH (19:41)
[2025-10-28] MEDS: APIXABAN 5 MG TABLET PO SCH (21:41)
[2025-10-28] MEDS: METOPROLOL SUCC 25MG EXT REL TAB PO SCH (21:41)
[2025-10-28] MEDS: levETIRAcetam 500 MG TAB PO SCH (21:42)
--- NOTE | 2025-10-28 22:55 | Electrocardiogram Report ---
Test Reason : Blood Pressure : */* mmHG Vent. Rate : 75 BPM Atrial Rate : * BPM P-R Int : * ms QRS Dur : 88 ms QT Int : 364 ms P-R-T Axes : * -27 257 degrees QTcB Int : 406 ms Atrial fibrillation Low voltage QRS Inferior infarct (cited on or before 28-Jan-2007) Anteroseptal infarct (cited on or before 28-Jan-2007) Nonspecific T wave abnormality Abnormal ECG When compared with ECG of 27-Oct-2025 08:26, No significant change was found Confirmed by Ramesh Jacobo ([id number]) on 10/28/2025 10:55:00 PM Referred By: Confirmed By: Ramesh Jacobo
--- NOTE | 2025-10-29 00:05 | Magnetic Resonance Report ---
Exam(s): MRI HEAD Without Contrast EXAM: MR Head Without Intravenous Contrast CLINICAL HISTORY: Reason for exam: left hemiparesis. TECHNIQUE: Magnetic resonance images of the head/brain without intravenous contrast in multiple planes. COMPARISON: Prior head CT from October 28, 2025. FINDINGS: Brain: There is a small acute ischemic injury of the right roger without evidence of hemorrhagic transformation. Mild nonspecific white matter changes. The flow voids at the base the brain are intact. Ventricles: Mild ventriculomegaly. Bones/joints: Unremarkable. No acute fracture. Sinuses: Unremarkable chronic ethmoid and left frontal sinusitis. No acute sinusitis. Mastoid air cells: There is a small amount of fluid in the right mastoid air cells. No mastoid effusion. Orbits: Unremarkable as visualized. IMPRESSION: There is an acute ischemic injury of the right roger without evidence of hemorrhagic transformation. Communications: Verify Receipt Electronically signed by: Sierra Rocha MD 10/29/25 00:04 AM
--- NOTE | 2025-10-29 00:07 | Magnetic Resonance Report ---
Exam(s): MRA HEAD Without Contrast EXAM: MR Angiography Head Without Intravenous Contrast CLINICAL HISTORY: Reason for exam: CVA. TECHNIQUE: Magnetic resonance angiography images of the head without intravenous contrast. COMPARISON: Prior CT angiogram of the head from March 07, 2025. FINDINGS: Right internal carotid artery: No acute findings. Intracranial segment is patent with no significant stenosis. No aneurysm. Right anterior cerebral artery: Unremarkable. No occlusion or significant stenosis. No aneurysm. Right middle cerebral artery: Unremarkable. No occlusion or significant stenosis. No aneurysm. Right posterior cerebral artery: Unremarkable. No occlusion or significant stenosis. No aneurysm. Right vertebral artery: Unremarkable as visualized. Left internal carotid artery: No acute findings. Intracranial segment is patent with no significant stenosis. No aneurysm. Left anterior cerebral artery: Unremarkable. No occlusion or significant stenosis. No aneurysm. Left middle cerebral artery: Unremarkable. No occlusion or significant stenosis. No aneurysm. Left posterior cerebral artery: Unremarkable. No occlusion or significant stenosis. No aneurysm. Left vertebral artery: Unremarkable as visualized. Basilar artery: Unremarkable. No occlusion or significant stenosis. No aneurysm. IMPRESSION: Negative MRA of the brain. Electronically signed by: Sierra Rocha MD 10/29/25 00:06 AM
--- NOTE | 2025-10-29 00:13 | Magnetic Resonance Report ---
Exam(s): MRA NECK Without Contrast EXAM: MR Angiography Neck Without Intravenous Contrast CLINICAL HISTORY: Reason for exam: CVA. TECHNIQUE: Magnetic resonance angiography images of the neck without intravenous contrast. COMPARISON: Prior CT angiogram of the neck from April 06, 2025. FINDINGS: Right common carotid artery: Unremarkable. No significant stenosis. No dissection or occlusion. Right internal carotid artery: Unremarkable. Extracranial segment is patent with no significant stenosis. No dissection or occlusion. Right external carotid artery: Unremarkable. No occlusion. Right vertebral artery: Unremarkable. No significant stenosis. No dissection or occlusion. Left common carotid artery: Unremarkable. No significant stenosis. No dissection or occlusion. Left internal carotid artery: Unremarkable. Extracranial segment is patent with no significant stenosis. No dissection or occlusion. Left external carotid artery: Unremarkable. No occlusion. Left vertebral artery: Unremarkable. No significant stenosis. No dissection or occlusion. Soft tissues: Unremarkable as visualized. CAROTID STENOSIS REFERENCE USING NASCET CRITERIA: % ICA stenosis = (1 - narrowest ICA diameter/diameter of distal cervical ICA) x 100. Mild - <50% stenosis. Moderate - 50-69% stenosis. Severe - 70-94% stenosis. Near occlusion - 95-99% stenosis. Occluded - 100% stenosis. IMPRESSION: Negative MRA of the neck. Electronically signed by: Sierra Rocha MD 10/29/25 00:12 AM
[2025-10-29 06:51] LABS: Hematocrit (blood only) 45.1 % (42.0-52.0); Hemoglobin 15.3 g/dL (14.0-18.0); Immature Granulocytes # (auto) 0.02 K/uL (0.01-0.20); Immature Granulocytes % (auto) 0.5 %; Mean Corpuscular Hemoglobin 30.5 pg (25.0-34.0); Mean Corpuscular Volume 89.8 fL (80.0-100.0); Platelet Count 165 K/uL (130-400); RDW Standard Deviation 39.9 fL (36.4-46.3); Red Blood Count 5.02 M/uL (4.70-6.10); White Blood Count 4.43 K/ul (4.8-10.8)
[2025-10-29 07:12] LABS: Anion Gap 8.0 (3-11); Blood Urea Nitrogen 32.0 mg/dl (6-23); Calcium 9.1 mg/dl (8.6-10.3); Carbon Dioxide 25.0 mmol/L (21-32); Chloride 105.0 mmol/L (98-107); Cholesterol 230.0 mg/dl (0-200); Creatinine Clr Calc Pharmacy 33.2 ml/min; Glucose 141.0 mg/dl (70-99(Fasting)); HDL Cholesterol 38.0 mg/dl; Magnesium 2.1 mg/dl (1.7-2.4); Potassium 4.1 mmol/L (3.5-5.1); Sodium 138.0 mmol/L (136-145); Triglycerides 86.0 mg/dl (0-150)
[2025-10-29 08:30] LABS: Hemoglobin A1C 7.4 % (4.5-5.6)
[2025-10-29] MEDS: ATORVASTATIN 40 MG TAB PO SCH (10:11)
--- NOTE | 2025-10-29 10:27 | XCELERA ---
[id number]
--- NOTE | 2025-10-29 10:35 | Hospitalist Progress Note ---
Date of Service October 29, 2025 Assessment & Plan (1) Left hemiparesis: (2) Diabetes mellitus, type 2: (3) Seizure: (4) MILTON (acute kidney injury): (5) Chronic atrial fibrillation: Plan 85 yo M who presents with left sided weakness, left facial droop x 1 week #Acute CVA R roger w/ left hemiparesis - Continue telemetry monitoring - NPO - passed bedside swallow assessment and diet advanced to regular consistency (diabetic) - MRI brain c/w acute ischemic injury R roger - Echo--Mildly reduced LVEF 40-45%, apical akinesis, inferior wall akinesis, mod , mild MR, no thrombus, mild LVH - Start ASA 81mg daily - Lipid panel obtained--total cholesterol 230, TG 86, LDL 175, and HDL 38 - HS trop 17, stat repeat 18 - PT/OT eval and treat--evals pending - Start atorvastatin 40mg daily - Neuro checks q2 - Stroke scale qshift #DMT2 - Currently Rx'd metformin 1000mg BID-held on admission for possible contrast administration - Given CKD/Age/BMI, pt is borderline CrCl 33 and ideally should avoid metformin - Start Januvia 50mg daily on discharge-SGLT2 would be indicated but renal function prevents this - Diabetic diet - Accuchecks ac and hs - A1c 7.4% #Seizure - Continue Keppra #Chronic afib - Continue Metoprolol Succ - Continue Eliquis but renally dose at 2.5 mg p.o. twice daily #CKD - Baseline Cr 1.1-1.5, given 1L of NSS - BMP this AM reveals stable/unchanged creatine of 1.55 #HTN-BP is uncontrolled - Add Amlodipine 2.5mg daily, continue Toprol as above Await therapy evals. Added amlodipine. Make full admission. VTE ppx covered with Eliquis. Patient would benefit from stay in rehab. Admission and Anticipated Discharge Date Admission Date: October 28, 2025 Supervising Physician Co-Signing Physician Notes PA Supervision Note: I did not personally see or examine the patient today, but I verified all byers points of INOCENCIA Ruggiero's assessment and plan with the following exceptions/additions: None Laura Armando was seen this AM on rounds. Admitted with left hemiparesis. He continues to endorse that he is as "weak as a kitten." He denies cp or dyspnea, numbness, or tingling. MRI confirmed acute ischemic injury of the R roger. Review of Systems 2 Review of Systems: All systems reviewed and are unremarkable except as noted in HPI and below. +left sided weakness Denies fever, chills, fatigue, headache, nasal congestion, sore throat, cough, chest pain, shortness of breath, palpitations, orthopnea, PND, abdominal pain, n/v/d, constipation, dysuria, hematuria, frequency, back pain, joint pain or swelling, easy bruising or bleeding, skin lesions or rashes. Physical Exam 2 Physical Exam: GENERAL: 85 yo elderly thin WM. A&Ox4. Pleasant. No distress. LUNGS: Clear to auscultation bilaterally. No W/R/R. CARDIOVASCULAR: Irregularly irreg +murmur ABDOMEN: Soft, non-tender and non-distended. BS normoactive x 4 quad. EXTREMITIES: No edema. Non-tender. Peripheral pulses +2/4. NEUROLOGIC: Subtle L facial droop. LUE and LLE weakness. SKIN: Warm, dry, intact. No rashes or lesions. Results & Data Results & Data Vital Signs (Past 12 Hours) Vital Signs Temp Pulse Pulse Resp BP BP Pulse Ox 10/29/25 08:30 36.4 C L 59 L 99 H 152/89 H 18 L 10/29/25 04:12 36.3 C L 63 12 141/82 H 98 10/28/25 22:53 72 10/28/25 22:35 36.3 C L 63 16 159/93 H 96 O2 Del Method 10/29/25 08:30 Room Air 10/29/25 04:12 Room Air 10/28/25 22:53 10/28/25 22:35 Room Air Laboratory Results 10/29/25 06:09 10/29/25 06:09 Diagnostic Findings Chest X-Ray 10/28/25 13:49 XR chest 1V portable HISTORY: 85 years-old Male neuro deficit, acute stroke suspected COMPARISON: Chest radiograph 10/27/2025 TECHNIQUE: AP view of the chest FINDINGS: Cardiac silhouette is enlarged. Median sternotomy. Atherosclerosis of the aorta. Unchanged mild right hemidiaphragmatic elevation. No pneumothorax, pleural effusion, airspace consolidation or pulmonary edema. Left mid lung calcified granuloma again seen. Bones appear grossly intact. IMPRESSION: No acute process. ACT 112: Negative or not required by law. The above report was generated using voice recognition software. It may contain grammatical, syntax or spelling errors. Electronically signed by: Himanshu Nettles M.D. 10/28/2025 2:[address] 10/28/25 13:49 CT SCAN OF THE BRAIN WITHOUT IV CONTRAST CLINICAL HISTORY: Strokelike symptoms. Neurological deficit. COMPARISON STUDY: CT of the brain dated 04/06/2025 TECHNIQUE: Unenhanced CT scan of the brain is performed from the vertex to the skull base. Images are reviewed in the axial, sagittal, coronal planes. A dose lowering technique was utilized adhering to the principles of ALARA. CT DOSE: 547.75 mGy.cm FINDINGS: Brain parenchyma: There is age-related involutional change noting mild subcortical and periventricular microangiopathic disease. There is no hemorrhage, mass effect, or evidence of acute territorial ischemia by CT criteria. Harris-white matter differentiation is preserved. No extra-axial fluid collection is seen. Ventricles, sulci, cisterns: Prominent secondary to involutional change. Intracranial vasculature: There is atherosclerotic calcification of the cavernous carotid and vertebral arteries. Calvarium: Unremarkable. Sinuses and mastoids: Mild mucosal thickening is seen in the left frontal sinuses and the left anterior ethmoid sinuses. The mastoid air cells are well pneumatized. Orbits: The bony orbits are grossly intact. IMPRESSION: There is no hemorrhage, mass effect, or evidence of acute territorial ischemia by CT criteria. ACT 112: Negative or not required by law. Electronically signed by: Felix Pandya M.D. 10/28/2025 2:40 PM Brain MRI 10/28/25 18:39 CR Exam(s): MRI HEAD Without Contrast EXAM: MR Head Without Intravenous Contrast CLINICAL HISTORY: Reason for exam: left hemiparesis. TECHNIQUE: Magnetic resonance images of the head/brain without intravenous contrast in multiple planes. COMPARISON: Prior head CT from October 28, 2025. FINDINGS: Brain: There is a small acute ischemic injury of the right roger without evidence of hemorrhagic transformation. Mild nonspecific white matter changes. The flow voids at the base the brain are intact. Ventricles: Mild ventriculomegaly. Bones/joints: Unremarkable. No acute fracture. Sinuses: Unremarkable chronic ethmoid and left frontal sinusitis. No acute sinusitis. Mastoid air cells: There is a small amount of fluid in the right mastoid air cells. No mastoid effusion. Orbits: Unremarkable as visualized. IMPRESSION: There is an acute ischemic injury of the right roger without evidence of hemorrhagic transformation. Communications: Verify Receipt Electronically signed by: Sierra Rocha MD 10/29/25 00:04 AM Head MRA 10/28/25 18:50 Exam(s): MRA HEAD Without Contrast EXAM: MR Angiography Head Without Intravenous Contrast CLINICAL HISTORY: Reason for exam: CVA. TECHNIQUE: Magnetic resonance angiography images of the head without intravenous contrast. COMPARISON: Prior CT angiogram of the head from March 07, 2025. FINDINGS: Right internal carotid artery: No acute findings. Intracranial segment is patent with no significant stenosis. No aneurysm. Right anterior cerebral artery: Unremarkable. No occlusion or significant stenosis. No aneurysm. Right middle cerebral artery: Unremarkable. No occlusion or significant stenosis. No aneurysm. Right posterior cerebral artery: Unremarkable. No occlusion or significant stenosis. No aneurysm. Right vertebral artery: Unremarkable as visualized. Left internal carotid artery: No acute findings. Intracranial segment is patent with no significant stenosis. No aneurysm. Left anterior cerebral artery: Unremarkable. No occlusion or significant stenosis. No aneurysm. Left middle cerebral artery: Unremarkable. No occlusion or significant stenosis. No aneurysm. Left posterior cerebral artery: Unremarkable. No occlusion or significant stenosis. No aneurysm. Left vertebral artery: Unremarkable as visualized. Basilar artery: Unremarkable. No occlusion or significant stenosis. No aneurysm. IMPRESSION: Negative MRA of the brain. Electronically signed by: Sierra Rocha MD 10/29/25 00:06 AM Neck MRA 10/28/25 18:50 Exam(s): MRA NECK Without Contrast EXAM: MR Angiography Neck Without Intravenous Contrast CLINICAL HISTORY: Reason for exam: CVA. TECHNIQUE: Magnetic resonance angiography images of the neck without intravenous contrast. COMPARISON: Prior CT angiogram of the neck from April 06, 2025. FINDINGS: Right common carotid artery: Unremarkable. No significant stenosis. No dissection or occlusion. Right internal carotid artery: Unremarkable. Extracranial segment is patent with no significant stenosis. No dissection or occlusion. Right external carotid artery: Unremarkable. No occlusion. Right vertebral artery: Unremarkable. No significant stenosis. No dissection or occlusion. Left common carotid artery: Unremarkable. No significant stenosis. No dissection or occlusion. Left internal carotid artery: Unremarkable. Extracranial segment is patent with no significant stenosis. No dissection or occlusion. Left external carotid artery: Unremarkable. No occlusion. Left vertebral artery: Unremarkable. No significant stenosis. No dissection or occlusion. Soft tissues: Unremarkable as visualized. CAROTID STENOSIS REFERENCE USING NASCET CRITERIA: % ICA stenosis = (1 - narrowest ICA diameter/diameter of distal cervical ICA) x 100. Mild - <50% stenosis. Moderate - 50-69% stenosis. Severe - 70-94% stenosis. Near occlusion - 95-99% stenosis. Occluded - 100% stenosis. IMPRESSION: Negative MRA of the neck. Electronically signed by: Sierra Rocha MD 10/29/25 00:12 AM PG Care Time/CCT Total # of Minutes Spent Total Time Spent with Patient: Total time spent is greater than 50% in coordination of care (as documented) at patient's floor/unit and/or counseling patient: 38 minutes Coding Level of Care Code 36798 SUB INP/OBS CARE 2/35MIN Diagnoses Left hemiparesis G81.94 Diabetes mellitus, type 2 E11.9 Seizure R56.9 MILTON (acute kidney injury) N17.9 Chronic atrial fibrillation I48.20
[2025-10-29] MEDS: APIXABAN 2.5 MG TAB PO SCH (21:02)
[2025-10-30] MEDS: ATORVASTATIN 40 MG TAB PO SCH (09:48)
[2025-10-30 09:56] LABS: Anion Gap 6.0 (3-11); Blood Urea Nitrogen 33.0 mg/dl (6-23); Calcium 9.5 mg/dl (8.6-10.3); Carbon Dioxide 26.0 mmol/L (21-32); Chloride 103.0 mmol/L (98-107); Creatinine Clr Calc Pharmacy 33.2 ml/min; Glucose 204.0 mg/dl (70-99(Fasting)); Potassium 4.3 mmol/L (3.5-5.1); Sodium 135.0 mmol/L (136-145)
--- NOTE | 2025-10-30 13:47 | Hospitalist Progress Note ---
Date of Service October 30, 2025 Assessment & Plan (1) Right pontine CVA: (2) Diabetes mellitus, type 2: (3) MILTON (acute kidney injury): (4) Chronic atrial fibrillation: Plan This patient is an 85 yo M with a history of DM2, seizure disorder, permanent atrial fibrillation on Eliquis, CKD stage III, HTN, who presents with left sided weakness, left facial droop x 1 week, found to have right roger acute ischemic CVA. #Acute CVA R roger w/ left hemiparesis and left facial droop-MRI confirmed stroke. Continues to have 4-5 weakness on left side of the body and left facial droop. BPs are controlled now with adding amlodipine. MR a head and neck negative for significant stenoses or large vessel occlusion. Echocardiogram negative bubble study, with mildly reduced EF 40-45%, mild-moderate aortic stenosis, mild MR, with inferior wall akinesis and apical akinesis, no thrombus- similar to previous. Lipid panel is uncontrolled with total cholesterol 230, LDL elevated 175. 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 - Started ASA 81mg daily to be taken in addition to his Eliquis 2.5 mg p.o. twice daily - Started atorvastatin 40mg daily but will increase to 80 mg daily for highest intensity statin - Continue neurochecks every 4 hours, NIH stroke scales every shift - Continue good BP control and diabetes control-his diabetes was previously severely uncontrolled with A1c of 15.9% and is now improved -Awaiting acute rehab disposition - SGLT2i would be indicated but his renal function likely prevents this #DMT2 with neuropathy-on metformin 1000mg BID at home and his HgbA1c has improved dramatically along with dietary changes in the last 7 months from 15.9% down to 7.4% - Given CKD/Age/BMI, pt is borderline CrCl 33 and ideally should avoid metformin, but it does seem to be working well for him so we will continue on discharge - Could consider starting Januvia 50mg daily on discharge -SGLT2 would be indicated but renal function prevents this - Diabetic diet - Accuchecks ac and hs # CAD s/p CABG/ischemic cardiomyopathy/chronic HFmrEF-no acute issues or chest pains. EF similar to previous at 40-45%. He is euvolemic - Continue Toprol-XL - Renal function prohibits SGLT2i, could consider adding ARB or Entresto on as an outpatient but defer to cardiology - Continue aspirin, and high intensity statin added this admission-unclear why not on previously - Follow-up with cardiology as an outpatient #Seizure-no acute issues - Continue Keppra # Permanent afib-rates are controlled - Continue Metoprolol Succ 25 mg at bedtime - Continue Eliquis but renally dose at 2.5 mg p.o. twice daily given creatinine greater than 1.5, age greater than 80 #CKD stage III-question of MILTON on admission but creatinine seems to be remaining stable at 1.5 despite IV fluids, this is likely his new baseline - Follow BMP - Renally dose medications-change Eliquis to 2.5 mg twice daily - Good BP control #HTN-BP was uncontrolled and now improved with adding amlodipine - Started amlodipine 2.5mg daily -Continue Toprol-XL 25 mg p.o. at bedtime - Consider adding on ARB or Entresto given history of heart failure, but not in the setting of acute roger stroke-do not want to drop his blood pressure too low DVT prophylaxis-Eliquis Disposition-medically stable for discharge, awaiting rehab placement-referrals made to [facility] by case management Admission and Anticipated Discharge Date Admission Date: October 29, 2025 Subjective Patient still feels "weak as a kitten" on the left side of his body but otherwise feeling fine. No chest pain or shortness of breath. He is hoping that he can have improvement as he is very active riding bikes and hiking prior to admission Telemetry with atrial fibrillation with rates in the 60s to 70s Physical Exam Constitutional: WD/WN, vitals as above ENMT: Mild left-sided facial droop Respiratory: normal respiratory effort, lungs clear to auscultation Cardiovascular: Rate/Rhythm: regular rate and + irregularly irregular Heart Sounds: no murmur Extremities: no edema Gastrointestinal (Abdomen): normal bowel sounds, soft, nontender, no hepatosplenomegaly Neurologic: CN's II-XI intact bilaterally (Except mild left facial droop) and + focal motor deficit (4/5 strength in left upper and lower extremities, otherwise 5/5 throughout); not confused Psychiatric: A+Ox3, euthymic affect Results & Data Results & Data Vital Signs (Past 12 Hours) Vital Signs Temp Pulse Pulse Pulse Resp BP Pulse Ox 10/30/25 10:55 36.5 C 63 18 122/73 95 10/30/25 07:20 36.4 C L 70 18 131/76 97 10/30/25 05:20 62 10/30/25 02:55 36.5 C 62 18 124/79 97 O2 Del Method 10/30/25 10:55 Room Air 10/30/25 07:20 Room Air 10/30/25 05:20 10/30/25 02:55 Room Air Laboratory Results BMP, lipid panel, HgbA1c reviewed PG Care Time/CCT Total # of Minutes Spent Total Time Spent with Patient: Total time spent is greater than 50% in coordination of care (as documented) at patient's floor/unit and/or counseling patient: Coding Level of Care Code 54708 SUB INP/OBS CARE 2/35MIN Diagnoses Right pontine CVA I63.50 Diabetes mellitus, type 2 E11.9 MILTON (acute kidney injury) N17.9 Chronic atrial fibrillation I48.20
--- NOTE | 2025-10-31 11:40 | Hospitalist Progress Note ---
Date of Service October 31, 2025 Assessment & Plan (1) Right pontine CVA: (2) Diabetes mellitus, type 2: (3) MILTON (acute kidney injury): (4) Chronic atrial fibrillation: Plan This patient is an 85 yo M with a history of DM2, seizure disorder, permanent atrial fibrillation on Eliquis, CKD stage III, HTN, who presents with left sided weakness, left facial droop x 1 week, found to have right roger acute ischemic CVA. #Acute CVA R roger w/ left hemiparesis and left facial droop-MRI confirmed stroke. Continues to have 4-5 weakness on left side of the body and left facial droop. BPs are controlled now with adding amlodipine. MR a head and neck negative for significant stenoses or large vessel occlusion. Echocardiogram negative bubble study, with mildly reduced EF 40-45%, mild-moderate aortic stenosis, mild MR, with inferior wall akinesis and apical akinesis, no thrombus- similar to previous. Lipid panel is uncontrolled with total cholesterol 230, LDL elevated 175. 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 - Started ASA 81mg daily to be taken in addition to his Eliquis 2.5 mg p.o. twice daily - Started atorvastatin increased to 80 mg daily for highest intensity statin - Continue neurochecks every 4 hours, NIH stroke scales every shift, stable and improving - Continue good BP control and diabetes control-his diabetes was previously severely uncontrolled with A1c of 15.9% and is now improved - Awaiting acute rehab disposition - SGLT2i would be indicated but his renal function likely prevents this #DMT2 with neuropathy-on metformin 1000mg BID at home and his HgbA1c has improved dramatically along with dietary changes in the last 7 months from 15.9% down to 7.4% - Given CKD/Age/BMI, pt is borderline CrCl 33 and ideally should avoid metformin, but it does seem to be working well for him so we will continue on discharge - Could consider starting Januvia 50mg daily on discharge - SGLT2 would be indicated but renal function prevents this - Diabetic diet - Accuchecks ac and hs # CAD s/p CABG/ischemic cardiomyopathy/chronic HFmrEF-no acute issues or chest pains. EF similar to previous at 40-45%. He is euvolemic - Continue Toprol-XL - Renal function prohibits SGLT2i, could consider adding ARB or Entresto on as an outpatient but defer to cardiology - Continue aspirin, and high intensity statin added this admission-unclear why not on previously - Follow-up with cardiology as an outpatient #Seizure-no acute issues - Continue Keppra # Permanent afib-rates are controlled - Continue Metoprolol Succ 25 mg at bedtime - Continue Eliquis but renally dose at 2.5 mg p.o. twice daily given creatinine greater than 1.5, age greater than 81 #CKD stage III-question of MILTON on admission but creatinine seems to be remaining stable at 1.5 despite IV fluids, this is likely his new baseline - Follow BMP - Renally dose medications-change Eliquis to 2.5 mg twice daily - Good BP control #HTN-BP was uncontrolled and now improved with adding amlodipine - Started amlodipine 2.5mg daily, tolerating well, at goal range, no hyptension noted - continue Toprol-XL 25 mg p.o. at bedtime - Consider adding on ARB or Entresto given history of heart failure, but not in the setting of acute roger stroke-do not want to drop his blood pressure too low DVT prophylaxis-Eliquis Disposition-medically stable for discharge, awaiting rehab placement-referrals made to [facility] by case management Admission and Anticipated Discharge Date Admission Date: October 29, 2025 Subjective Doing well. Slept okay. Sitting up in the bedside chair. He has been doing exercises in his room. States he does feel some improvement in the left-sided weakness although he is still "weak as a kitten". We discussed the possibility of [facility] versus [facility] rehab. Referrals are pending. He is very co mfortable with both and understands the need. No difficulty with swallowing. No new events or concerns per patient. NON concerns per nursing Physical Exam Constitutional: WD/WN, vitals as above ENMT: Mild left-sided facial droop Respiratory: normal respiratory effort, lungs clear to auscultation Cardiovascular: Rate/Rhythm: regular rate and + irregularly irregular Heart Sounds: no murmur Extremities: no edema Gastrointestinal (Abdomen): normal bowel sounds, soft, nontender, no hepatosplenomegaly Neurologic: CN's II-XI intact bilaterally (mild left facial droop, no ptosis) and + focal motor deficit (4/5 strength in left upper and lower extremities, otherwise 5/5 throughout); not confused Psychiatric: A+Ox3, euthymic affect Results & Data Results & Data Vital Signs (Past 12 Hours) Vital Signs Temp Pulse Pulse Resp BP Pulse Ox O2 Del Method 10/31/25 08:00 36.4 C L 60 20 137/87 96 Room Air 10/31/25 05:33 60 10/31/25 03:08 36.4 C L 59 L 16 126/75 97 Room Air Laboratory Results 10/31/25 10/31/25 10/30/25 11:36 07:51 19:56 POC Glucose 184 H 156 H 175 H 10/30/25 10/30/25 17:08 11:57 POC Glucose 161 H 169 H PG Care Time/CCT Total # of Minutes Spent Total Time Spent with Patient: Total time spent is greater than 50% in coordination of care (as documented) at patient's floor/unit and/or counseling patient: Coding Level of Care Code 22023 SUB INP/OBS CARE 2/35MIN Diagnoses Right pontine CVA I63.50 Diabetes mellitus, type 2 E11.9 MILTON (acute kidney injury) N17.9 Chronic atrial fibrillation I48.20
--- NOTE | 2025-10-31 14:02 | Pharmacy Report ---
- Date of Service October 31, 2025 - Pharmacy CVA/TIA Medication Review Medications to Prevent Stroke handout has been added to the patients discharge packet. Antiplatelet(s) * aspirin 81 mg po daily Cholesterol * High intensity statin: atorvastatin 80 mg daily DVT Prophylaxis * see below Therapeutic Anticoagulation * eliquis 2.5 mg bid Type 2 Diabetes * Patient has T2DM, but per provider, a diabetes medication with proven CVD benefit (such as a GLP-1 agonist or SGLT2 inhibitor) will be decided upon closer to discharge pending improvement in renal function. "Medications to prevent stroke" handout has already been added to the patient's discharge packet, which instructs the patient to follow up with their outpatient provider to evaluate which diabetes medication with proven CVD benefit is best for them
[2025-11-01 06:48] LABS: Hematocrit (blood only) 44.0 % (42.0-52.0); Hemoglobin 15.1 g/dL (14.0-18.0); Immature Granulocytes # (auto) 0.02 K/uL (0.01-0.20); Immature Granulocytes % (auto) 0.4 %; Mean Corpuscular Hemoglobin 30.7 pg (25.0-34.0); Mean Corpuscular Volume 89.4 fL (80.0-100.0); Platelet Count 179 K/uL (130-400); RDW Standard Deviation 39.7 fL (36.4-46.3); Red Blood Count 4.92 M/uL (4.70-6.10); White Blood Count 4.73 K/ul (4.8-10.8)
[2025-11-01 07:23] LABS: Alanine Aminotransferase 7.0 U/L (7-52); Albumin Globulin Ratio 1.2 (0.9-2); Albumin Level 3.7 gm/dl (3.4-5.0); Alkaline Phosphatase 49.0 U/L (34-104); Anion Gap 7.0 (3-11); Bilirubin,Total 0.9 mg/dl (0.2-1.0); Blood Urea Nitrogen 31.0 mg/dl (6-23); Calcium 9.2 mg/dl (8.6-10.3); Carbon Dioxide 25.0 mmol/L (21-32); Chloride 105.0 mmol/L (98-107); Creatinine Clr Calc Pharmacy 33.3 ml/min; Globulin 3.2 gm/dl (2.5-4.0); Glucose 157.0 mg/dl (70-99(Fasting)); Magnesium 2.1 mg/dl (1.7-2.4); Potassium 3.9 mmol/L (3.5-5.1); Sodium 137.0 mmol/L (136-145); Total Protein 6.9 gm/dl (6.0-8.3)
--- NOTE | 2025-11-01 17:35 | Hospitalist Progress Note ---
Date of Service November 01, 2025 Assessment & Plan (1) Right pontine CVA: (2) Diabetes mellitus, type 2: (3) MILTON (acute kidney injury): (4) Chronic atrial fibrillation: Plan This patient is an 85 yo M with a history of DM2, seizure disorder, permanent atrial fibrillation on Eliquis, CKD stage III, HTN, who presents with left sided weakness, left facial droop x 1 week, found to have right roger acute ischemic CVA. #Acute CVA R roger w/ left hemiparesis and left facial droop-MRI confirmed stroke. Continues to have 4-5 weakness on left side of the body and left facial droop. BPs are controlled now with adding amlodipine. MR a head and neck negative for significant stenoses or large vessel occlusion. Echocardiogram negative bubble study, with mildly reduced EF 40-45%, mild-moderate aortic stenosis, mild MR, with inferior wall akinesis and apical akinesis, no thrombus- similar to previous. Lipid panel is uncontrolled with total cholesterol 230, LDL elevated 175. He has permanent rate controlled atrial fibrillation on the campus monitor and had been on Eliquis at the time of his stroke. - Started ASA 81mg daily to be taken in addition to his Eliquis 2.5 mg p.o. twice daily, reviewed with neurology for the possibility of breakthrough on Eliquis. Eliquis plus aspirin still has the best data for secondary prevention. - Started atorvastatin increased to 80 mg daily for highest intensity statin - NIH stroke scales every shift, stable and improving - Continue good BP control and diabetes control-his diabetes was previously severely uncontrolled with A1c of 15.9% and is now improved - Awaiting acute rehab disposition, awaiting approval - SGLT2i would be indicated but his renal function likely prevents this, at least for the short-term #DMT2 with neuropathy-on metformin 1000mg BID at home and his HgbA1c has improved dramatically along with dietary changes in the last 7 months from 15.9% down to 7.4% - Given CKD/Age/BMI, pt is borderline CrCl 33 and ideally should avoid m etformin, but it does seem to be working well for him so we will continue on discharge - Could consider starting Januvia 50mg daily on discharge - SGLT2 would be indicated but renal function prevents this - Diabetic diet - Accuchecks ac and hs # CAD s/p CABG/ischemic cardiomyopathy/chronic HFmrEF-no acute issues or chest pains. EF similar to previous at 40-45%. He is euvolemic - Continue Toprol-XL - Renal function prohibits SGLT2i, could consider adding ARB or Entresto on as an outpatient but defer to cardiology - Continue aspirin, and high intensity statin added this admission-unclear why not on previously - Follow-up with cardiology as an outpatient #Seizure-no acute issues - Continue Keppra # Permanent afib-rates are controlled - Continue Metoprolol Succ 25 mg at bedtime - Continue Eliquis but renally dose at 2.5 mg p.o. twice daily given creatinine greater than 1.5, age greater than 80 #CKD stage III-question of MILTON on admission but creatinine seems to be remaining stable at 1.5 despite IV fluids, this is likely his new baseline - Follow BMP - Renally dose medications-change Eliquis to 2.5 mg twice daily - Good BP control #HTN-BP was uncontrolled and now improved with adding amlodipine - Started amlodipine 2.5mg daily, tolerating well, at goal range, no hyptension noted - continue Toprol-XL 25 mg p.o. at bedtime - Consider adding on ARB or Entresto given history of heart failure, but not in the setting of acute roger stroke-do not want to drop his blood pressure too low DVT prophylaxis-Eliquis Disposition-medically stable for discharge, awaiting rehab placement-referrals made to [facility] by case management Admission and Anticipated Discharge Date Admission Date: October 29, 2025 Subjective doing just fine this morning. Still thinks he has some improvement in the left arm but not substantial compared to the first day. No new or different symp toms. He is very interested in initiating rehab in the recovery process as quickly as possible. No new concerns or complaints per patient. No events or concerns per nursing staff. Good oral intake. No problem with bowel or bladder function Physical Exam Constitutional: WD/WN, vitals as above ENMT: Mild left-sided facial droop Respiratory: normal respiratory effort, lungs clear to auscultation Cardiovascular: Rate/Rhythm: regular rate and + irregularly irregular Heart Sounds: no murmur Extremities: no edema Gastrointestinal (Abdomen): normal bowel sounds, soft, nontender, no hepatosplenomegaly Neurologic: CN's II-XI intact bilaterally (mild left facial droop, no ptosis) and + focal motor deficit (4/5 strength in left upper and lower extremities, otherwise 5/5 throughout); not confused Psychiatric: A+Ox3, euthymic affect Results & Data Results & Data Vital Signs (Past 12 Hours) Vital Signs Temp Pulse Pulse Resp BP Pulse Ox O2 Del Method 11/01/25 15:07 36.4 C L 62 18 133/74 94 Room Air 11/01/25 14:39 79 11/01/25 11:47 36.5 C 69 20 121/82 97 Room Air 11/01/25 07:42 36.2 C L 81 16 130/87 97 Room Air Laboratory Results 11/01/25 11/01/25 11/01/25 16:40 11:44 07:38 WBC RBC Hgb Hct MCV MCH MCHC RDW Std Deviation RDW Coeff of Cierra Plt Count MPV Immature Gran % (Auto) Neut % (Auto) Lymph % (Auto) Real % (Auto) Eos % (Auto) Baso % (Auto) Neut # (Auto) Lymph # (Auto) Real # (Auto) Eos # (Auto) Baso # (Auto) Immature Gran # (Auto) Sodium Potassium Chloride Carbon Dioxide Anion Gap BUN Creatinine Est Cr Clr Drug Dosing eGFR BUN/Creatinine Ratio Glucose POC Glucose 138 H 178 H 151 H Calcium Magnesium Total Bilirubin AST ALT Alkaline Phosphatase Total Protein Albumin Globulin Albumin/Globulin Ratio 11/01/25 10/31/25 05:56 20:21 WBC 4.73 L RBC 4.92 Hgb 15.1 Hct 44.0 MCV 89.4 MCH 30.7 MCHC 34.3 RDW Std Deviation 39.7 RDW Coeff of Cierra 12.0 Plt Count 179 MPV 10.0 Immature Gran % (Auto) 0.4 Neut % (Auto) 61.5 Lymph % (Auto) 25.6 Real % (Auto) 9.7 Eos % (Auto) 1.7 Baso % (Auto) 1.1 Neut # (Auto) 2.91 Lymph # (Auto) 1.21 Real # (Auto) 0.46 Eos # (Auto) 0.08 Baso # (Auto) 0.05 Immature Gran # (Auto) 0.02 Sodium 137 Potassium 3.9 Chloride 105 Carbon Dioxide 25 Anion Gap 7 BUN 31 H Creatinine 1.57 H Est Cr Clr Drug Dosing 33.3 eGFR 43.19 BUN/Creatinine Ratio 19.7 Glucose 157 H POC Glucose 186 H Calcium 9.2 Magnesium 2.1 Total Bilirubin 0.9 AST 16 ALT 7 Alkaline Phosphatase 49 Total Protein 6.9 Albumin 3.7 Globulin 3.2 Albumin/Globulin Ratio 1.2 PG Care Time/CCT Total # of Minutes Spent Total Time Spent with Patient: Total time spent is greater than 50% in coordination of care (as documented) at patient's floor/unit and/or counseling patient: Coding Level of Care Code 17362 SUB INP/OBS CARE 2/35MIN Diagnoses Right pontine CVA I63.50 Diabetes mellitus, type 2 E11.9 MILTON (acute kidney injury) N17.9 Chronic atrial fibrillation I48.20
[2025-11-02 07:21] LABS: Hematocrit (blood only) 45.0 % (42.0-52.0); Hemoglobin 15.2 g/dL (14.0-18.0); Immature Granulocytes # (auto) 0.01 K/uL (0.01-0.20); Immature Granulocytes % (auto) 0.2 %; Mean Corpuscular Hemoglobin 30.3 pg (25.0-34.0); Mean Corpuscular Volume 89.6 fL (80.0-100.0); Platelet Count 170 K/uL (130-400); RDW Standard Deviation 39.8 fL (36.4-46.3); Red Blood Count 5.02 M/uL (4.70-6.10); White Blood Count 4.55 K/ul (4.8-10.8)
[2025-11-02 08:15] LABS: Anion Gap 7.0 (3-11); Blood Urea Nitrogen 31.0 mg/dl (6-23); Calcium 9.2 mg/dl (8.6-10.3); Carbon Dioxide 25.0 mmol/L (21-32); Chloride 105.0 mmol/L (98-107); Creatinine Clr Calc Pharmacy 32.1 ml/min; Glucose 149.0 mg/dl (70-99(Fasting)); Magnesium 2.1 mg/dl (1.7-2.4); Potassium 4.2 mmol/L (3.5-5.1); Sodium 137.0 mmol/L (136-145)
--- NOTE | 2025-11-02 12:48 | Hospitalist Progress Note ---
Date of Service November 02, 2025 Assessment & Plan (1) Right pontine CVA: (2) Diabetes mellitus, type 2: (3) MILTON (acute kidney injury): (4) Chronic atrial fibrillation: Plan This patient is an 85 yo M with a history of DM2, seizure disorder, permanent atrial fibrillation on Eliquis, CKD stage III, HTN, who presents with left sided weakness, left facial droop x 1 week, found to have right roger acute ischemic CVA. #Acute CVA R roger w/ left hemiparesis and left facial droop-MRI confirmed stroke. Continues to have 4/5 weakness on left side of the body and left facial droop with some slight improvement since admission. BPs are controlled now with adding amlodipine. MRA head and neck negative for significant stenoses or large vessel occlusion. Echocardiogram negative bubble study, with mildly reduced EF 40-45%, mild-moderate aortic stenosis, mild MR, with inferior wall akinesis and apical akinesis, no thrombus-similar to previous. Lipid panel is uncontrolled with total cholesterol 230, LDL elevated 175. He has permanent rate controlled atrial fibrillation on the conveyor monitor and had been on Eliquis at the time of his stroke. This was likely a small vessel thrombotic stroke not related to atrial fibrillation. - Started ASA 81mg daily to be taken in addition to his Eliquis 2.5 mg p.o. twice daily - Started atorvastatin increased to 80 mg daily for highest intensity statin - NIH stroke scales every shift, stable and improving - Continue good BP control and diabetes control-his diabetes was previously severely uncontrolled with A1c of 15.9% and is now improved - Awaiting rehab disposition-insurance denied acute rehab, now awaiting approval of custodial facility - SGLT2i would be indicated but his renal function likely prevents this, at least for the short-term #DMT2 with neuropathy-on metformin 1000mg BID at home and his HgbA1c has improved dramatically along with dietary changes in the last 7 months from 15.9% down to 7.4% - Given CKD/Age/BMI, pt is borderline CrCl 33 and ideally should avoid metformin, but it does seem to be working well for him so we will continue on discharge - Could consider starting Januvia 50mg daily on discharge - SGLT2i would be indicated due to cerebrovascular disease, but renal function prevents this - Diabetic diet - Accuchecks ac and hs # CAD s/p CABG/ischemic cardiomyopathy/chronic HFmrEF-no acute issues or chest pains. EF similar to previous at 40-45%. He is euvolemic - Continue Toprol-XL - Renal function prohibits SGLT2i, could consider adding ARB or Entresto on as an outpatient but defer to cardiology - Continue aspirin, and high intensity statin added this admission-unclear why not on previously - Follow-up with cardiology as an outpatient #Seizure-no acute issues - Continue Keppra # Permanent afib-rates remain controlled on telemetry - Continue Metoprolol Succ 25 mg at bedtime - Continue Eliquis but renally dose at 2.5 mg p.o. twice daily given creatinine greater than 1.5, age greater than 80 #CKD stage III-question of MILTON on admission but creatinine seems to be remaining stable at 1.5 despite IV fluids, this is likely his new baseline - Follow BMP periodically - Renally dose medications-changed Eliquis to 2.5 mg twice daily - Good BP control #HTN-BP was uncontrolled and now improved with adding amlodipine - Started amlodipine 2.5mg daily - continue Toprol-XL 25 mg p.o. at bedtime - Consider adding on ARB or Entresto given history of heart failure, but not in the setting of acute roger stroke-do not want to drop his blood pressure too low DVT prophylaxis-Eliquis Disposition-medically stable for discharge, awaiting rehab placement-denied insurance authorization to [facility]. [facility]erral [facility]- awaiting repeat authorization for custodial facility-not likely till 11/04. If that is denied, patient will go home with home health Admission and Anticipated Discharge Date Admission Date: October 29, 2025 Subjective Patient has no complaints. He feels like he is gaining some strength back in the left hand especially and some in the left arm and leg. He is tolerating p.o. He has no complaints. Telemetry with atrial fibrillation with rates in the 60s to 80s. I contacted the medical sales specialist at his health insurance who denied him in acute rehab stay. I discussed his care with the case managersclinical services manager Exam Constitutional: WD/WN, vitals as above Respiratory: normal respiratory effort, lungs clear to auscultation Cardiovascular: Rate/Rhythm: regular rate and + irregularly irregular Heart Sounds: no murmur Extremities: no edema Gastrointestinal (Abdomen): normal bowel sounds, soft, nontender, no hepatosplenomegaly Neurologic: CN's II-XI intact bilaterally (Except mild left facial droop) and + focal motor deficit (4/5 strength in left upper and lower extremities, otherwise 5/5 throughout); not confused Psychiatric: A+Ox3, euthymic affect Results & Data Results & Data Vital Signs (Past 12 Hours) Vital Signs Temp Pulse Resp BP Pulse Ox O2 Del Method 11/02/25 11:13 36.3 C L 76 18 139/83 97 Room Air 11/02/25 08:34 36.4 C L 72 18 129/84 98 Room Air 11/02/25 03:29 36.3 C L 72 16 140/69 96 Room Air Laboratory Results CBC, BMP, magnesium, blood cultures reviewed PG Care Time/CCT Total # of Minutes Spent Total Time Spent with Patient: Total time spent is greater than 50% in coordination of care (as documented) at patient's floor/unit and/or counseling patient: Coding Level of Care Code 25500 SUB INP/OBS CARE 12/04MIN Diagnoses Right pontine CVA I63.50 Diabetes mellitus, type 2 E11.9 MILTON (acute kidney injury) N17.9 Chronic atrial fibrillation I48.20
--- NOTE | 2025-11-03 16:45 | Hospitalist Progress Note ---
Date of Service November 03, 2025 Assessment & Plan (1) Right pontine CVA: (2) Diabetes mellitus, type 2: (3) MILTON (acute kidney injury): (4) Chronic atrial fibrillation: Plan This patient is an 85 yo M with a history of DM2, seizure disorder, permanent atrial fibrillation on Eliquis, CKD stage III, HTN, who presents with left sided weakness, left facial droop x 1 week, found to have right roger acute ischemic CVA. #Acute CVA R roger w/ left hemiparesis and left facial droop-MRI confirmed stroke. Continues to have 4/5 weakness on left side of the body and left facial droop with some slight improvement since admission. BPs are controlled now with adding amlodipine. MRA head and neck negative for significant stenoses or large vessel occlusion. Echocardiogram negative bubble study, with mildly reduced EF 40-45%, mild-moderate aortic stenosis, mild MR, with inferior wall akinesis and apical akinesis, no thrombus-similar to previous. Lipid panel is uncontrolled with total cholesterol 230, LDL elevated 175. He has permanent rate controlled atrial fibrillation on the quality assurance monitor and had been on Eliquis at the time of his stroke. This was likely a small vessel thrombotic stroke not related to atrial fibrillation. - Started ASA 81mg daily to be taken in addition to his Eliquis 2.5 mg p.o. twice daily - Started atorvastatin increased to 80 mg daily for highest intensity statin - Continue good BP control and diabetes control-his diabetes was previously severely uncontrolled with A1c of 15.9% and is now improved - Awaiting rehab disposition-insurance denied acute rehab, now awaiting approval of [facility] facility - SGLT2i would be indicated but his renal function likely prevents this, at least for the short-term #DMT2 with neuropathy-on metformin 1000mg BID at home and his HgbA1c has improved dramatically along with dietary changes in the last 7 months from 15.9% down to 7.4% - Given CKD/Age/BMI, pt is borderline CrCl 33 and ideally should avoid metformin, but it does seem to be working well for him so we will continue on discharge - Could consider starting Januvia 50mg daily on discharge - SGLT2i would be indicated due to cerebrovascular disease, but renal function prevents this - Diabetic diet - Accuchecks ac and hs # CAD s/p CABG/ischemic cardiomyopathy/chronic HFmrEF-no acute issues or chest pains. EF similar to previous at 40-45%. He is euvolemic - Continue Toprol-XL - Renal function prohibits SGLT2i, could consider adding ARB or Entresto on as an outpatient but defer to cardiology - Continue aspirin, and high intensity statin added this admission - Follow-up with cardiology as an outpatient #Seizure-no acute issues - Continue Keppra # Permanent afib-rates remain controlled on telemetry - Continue Metoprolol Succ 25 mg at bedtime - Continue Eliquis but renally dose at 2.5 mg p.o. twice daily given creatinine greater than 1.5, age greater than 80 #CKD stage III-question of MILTON on admission but creatinine seems to be remaining stable at 1.5 despite IV fluids, this is likely his new baseline - Follow BMP periodically - Renally dose medications-changed Eliquis to 2.5 mg twice daily - Good BP control #HTN-BP was uncontrolled and now improved with adding amlodipine - Started amlodipine 2.5mg daily - continue Toprol-XL 25 mg p.o. at bedtime - Consider adding on ARB or Entresto given history of heart failure, but not in the setting of acute roger stroke-do not want to drop his blood pressure too low DVT prophylaxis-Eliquis Disposition-medically stable for discharge, awaiting rehab placement-denied insurance authorization to [facility]. Referral now made to [facility]- awaiting repeat authorization for [facility] facility-not likely till 11/04. If that is denied, patient will go home with home health Admission and Anticipated Discharge Date Admission Date: October 29, 2025 Subjective No acute issues, remains somewhat weak on the left side Telemetry with atrial fibrillation and occasional PVCs with rates in the 60s to 70s Physical Exam Constitutional: WD/WN, vitals as above Respiratory: normal respiratory effort, lungs clear to auscultation Cardiovascular: Rate/Rhythm: regular rate and + irregularly irregular Heart Sounds: no murmur Extremities: no edema Gastrointestinal (Abdomen): normal bowel sounds, soft, nontender, no hepatosplenomegaly Neurologic: CN's II-XI intact bilaterally (Except mild left facial droop) and + focal motor deficit (4/5 strength in left upper and lower extremities, otherwise 5/5 throughout); not confused Psychiatric: A+Ox3, euthymic affect Results & Data Results & Data Vital Signs (Past 12 Hours) Vital Signs Temp Pulse Pulse Resp BP Pulse Ox O2 Del Method 11/03/25 13:34 85 11/03/25 11:10 36.5 C 86 18 147/84 H 97 Room Air 11/03/25 08:11 60 11/03/25 07:57 36.4 C L 71 18 123/81 96 Room Air Laboratory Results No labs for review PG Care Time/CCT Total # of Minutes Spent Total Time Spent with Patient: Total time spent is greater than 50% in coordination of care (as documented) at patient's floor/unit and/or counseling patient: Coding Level of Care Code 89656 SUB INP/OBS CARE 12/04MIN Diagnoses Right pontine CVA I63.50 Diabetes mellitus, type 2 E11.9 MILTON (acute kidney injury) N17.9 Chronic atrial fibrillation I48.20
[2025-11-03] MEDS ORDERED: DEXTROSE 50% 50 ML SYRINGE IV PRN (17:35)
[2025-11-03] MEDS ORDERED: GLUCOSE 10 TAB/TUBE PO PRN (17:35)
[2025-11-03] MEDS ORDERED: CARBOHYDRATES FOR HYPOGLYCEMIA PO PRN (17:35)
[2025-11-03] MEDS ORDERED: GLUCOSE 40% GEL 15 GM TUBE PO PRN (17:35)
[2025-11-03] MEDS ORDERED: GLUCAGON FOR INJ 1 MG VIAL SQ PRN (17:35)
[2025-11-03] MEDS: INSULIN ASPART PER UNIT CHARGE SC SCH (21:29)
--- NOTE | 2025-11-04 16:47 | Hospitalist Progress Note ---
Date of Service November 04, 2025 Assessment & Plan (1) Right pontine CVA: (2) Diabetes mellitus, type 2: (3) MILTON (acute kidney injury): (4) Chronic atrial fibrillation: Plan This patient is an 85 yo M with a history of DM2, seizure disorder, permanent atrial fibrillation on Eliquis, CKD stage III, HTN, who presents with left sided weakness, left facial droop x 1 week, found to have right roger acute ischemic CVA. #Acute CVA R roger w/ left hemiparesis and left facial droop-MRI confirmed stroke. Continues to have 4/5 weakness on left side of the body and left facial droop with some slight improvement since admission. BPs are controlled now with adding amlodipine. MRA head and neck negative for significant stenoses or large vessel occlusion. Echocardiogram negative bubble study, with mildly reduced EF 40-45%, mild-moderate aortic stenosis, mild MR, with inferior wall akinesis and apical akinesis, no thrombus-similar to previous. Lipid panel is uncontrolled with total cholesterol 230, LDL elevated 175. He has permanent rate controlled atrial fibrillation on the cafeteria assistant and had been on Eliquis at the time of his stroke. This was likely a small vessel thrombotic stroke not related to atrial fibrillation. - Started ASA 81mg daily to be taken in addition to his Eliquis 2.5 mg p.o. twice daily - Started atorvastatin increased to 80 mg daily for highest intensity statin - Continue good BP control and diabetes control-his diabetes was previously severely uncontrolled with A1c of 15.9% and is now improved - Awaiting rehab disposition-insurance denied acute rehab, now awaiting approval of retirement facility - Given his high underlying functional status structured aggressive rehab is likely to provide the best outcome and recovery - SGLT2i would be indicated but his renal function likely prevents this, at least for the short-term #DMT2 with neuropathy-on metformin 1000mg BID at home and his HgbA1c has improved dramatically along with dietary changes in the last 7 months from 15.9% down to 7.4% - Given CKD/Age/BMI, pt is borderline CrCl 33 and ideally should avoid metformin, but it does seem to be working well for him so we will continue on discharge - Could consider starting Januvia 50mg daily on discharge - SGLT2i would be indicated due to cerebrovascular disease, but renal function prevents this - Diabetic diet - Accuchecks ac and hs # CAD s/p CABG/ischemic cardiomyopathy/chronic HFmrEF-no acute issues or chest pains. EF similar to previous at 40-45%. He is euvolemic - Continue Toprol-XL - Renal function prohibits SGLT2i, could consider adding ARB or Entresto on as an outpatient but defer to cardiology - Continue aspirin, and high intensity statin added this admission - Follow-up with cardiology as an outpatient #Seizure-no acute issues - Continue Keppra # Permanent afib-rates remain controlled on telemetry - Continue Metoprolol Succ 25 mg at bedtime - Continue Eliquis but renally dose at 2.5 mg p.o. twice daily given creatinine greater than 1.5, age greater than 80 #CKD stage III-question of MILTON on admission but creatinine seems to be remaining stable at 1.5 despite IV fluids, this is likely his new baseline - Follow BMP periodically - Renally dose medications-changed Eliquis to 2.5 mg twice daily - Good BP control #HTN-BP was uncontrolled and now improved with adding amlodipine - Started amlodipine 2.5mg daily - continue Toprol-XL 25 mg p.o. at bedtime - Consider adding on ARB or Entresto given history of heart failure, but not in the setting of acute roger stroke-do not want to drop his blood pressure too low DVT prophylaxis-Eliquis Disposition-medically stable for discharge, awaiting rehab placement-denied insurance authorization to [facility]. Referral now made to [facility]- awaiting repeat authorization for retirement facility-not likely till 11/04. If that is denied, patient will go home with home health Admission and Anticipated Discharge Date Admission Date: October 29, 2025 Subjective Doing OK this AM , no new events or concerns, eating well, no problems with urine or bowel function. Wokring with PT and OT, motivated to get better. Starting to loo forward to Rehab on Friday. Physical Exam Constitutional: WD/WN, vitals as above Respiratory: normal respiratory effort, lungs clear to auscultation Cardiovascular: Rate/Rhythm: regular rate and + irregularly irregular Heart Sounds: no murmur Extremities: no edema Gastrointestinal (Abdomen): normal bowel sounds, soft, nontender, no hepatosplenomegaly Neurologic: CN's II-XI intact bilaterally (Except mild left facial droop) and + focal motor deficit (4/5 strength in left upper and lower extremities, otherwise 5/5 throughout); not confused GCS [id number] Psychiatric: A+Ox3, euthymic affect Results & Data Results & Data Vital Signs (Past 12 Hours) Vital Signs Temp Pulse Resp BP Pulse Ox O2 Del Method 11/04/25 15:13 72 18 131/81 98 Room Air 11/04/25 08:10 Room Air 11/04/25 07:24 36.5 C 57 L 18 127/83 98 Room Air Laboratory Results 11/04/25 11/04/25 11/03/25 12:01 07:54 20:10 POC Glucose 164 H 133 H 251 H 11/03/25 17:21 POC Glucose 137 H PG Care Time/CCT Total # of Minutes Spent Total Time Spent with Patient: Total time spent is greater than 50% in coordination of care (as documented) at patient's floor/unit and/or counseling patient: Coding Level of Care Code 07196 SUB INP/OBS CARE 12/04MIN Diagnoses Right pontine CVA I63.50 Diabetes mellitus, type 2 E11.9 MILTON (acute kidney injury) N17.9 Chronic atrial fibrillation I48.20
[2025-11-04] MEDS: ALUMINUM/MAGNESIUM SUSP 30 ML UDC PO PRN (20:29)
--- NOTE | 2025-11-05 14:35 | Hospitalist Progress Note ---
Date of Service November 05, 2025 Assessment & Plan (1) Right pontine CVA: (2) Diabetes mellitus, type 2: (3) MILTON (acute kidney injury): (4) Chronic atrial fibrillation: Plan This patient is an 85 yo M with a history of DM2, seizure disorder, permanent atrial fibrillation on Eliquis, CKD stage III, HTN, who presents with left sided weakness, left facial droop x 1 week, found to have right roger acute ischemic CVA. #Acute CVA R roger w/ left hemiparesis and left facial droop-MRI confirmed stroke. Continues to have 4/5 weakness on left side of the body and left facial droop with some slight improvement since admission. BPs are controlled now with adding amlodipine. MRA head and neck negative for significant stenoses or large vessel occlusion. Echocardiogram negative bubble study, with mildly reduced EF 40-45%, mild-moderate aortic stenosis, mild MR, with inferior wall akinesis and apical akinesis, no thrombus-similar to previous. Lipid panel is uncontrolled with total cholesterol 230, LDL elevated 175. He has permanent rate controlled atrial fibrillation on the cardiac monitor and had been on Eliquis at the time of his stroke. This was likely a small vessel thrombotic stroke not related to atrial fibrillation. - Started ASA 81mg daily to be taken in addition to his Eliquis 2.5 mg p.o. twice daily - Started atorvastatin increased to 80 mg daily for highest intensity statin - Continue good BP control and diabetes control-his diabetes was previously severely uncontrolled with A1c of 15.9% and is now improved - Awaiting rehab disposition-insurance denied acute rehab, now awaiting approval of halfway facility - Given his high underlying functional status structured aggressive rehab is likely to provide the best outcome and recovery, no change, pt and caregiver remain in agreement. - SGLT2i would be indicated but his renal function likely prevents this, at least for the short-term #DMT2 with neuropathy-on metformin 1000mg BID at home and his HgbA1c has improved dramatically along with dietary changes in the last 7 months from 15.9% down to 7.4% - Given CKD/Age/BMI, pt is borderline CrCl 33 and ideally should avoid metformin, but it does seem to be working well for him so we will continue on discharge - Could consider starting Januvia 50mg daily on discharge - SGLT2i would be indicated due to cerebrovascular disease, but renal function prevents this - Diabetic diet - Accuchecks ac and hs, generally at goal # CAD s/p CABG/ischemic cardiomyopathy/chronic HFmrEF-no acute issues or chest pains. EF similar to previous at 40-45%. He is euvolemic - Continue Toprol-XL - Renal function prohibits SGLT2i, could consider adding ARB or Entresto on as an outpatient but defer to cardiology - Continue aspirin, and high intensity statin added this admission - Follow-up with cardiology as an outpatient #Seizure-no acute issues - Continue Keppra # Permanent afib-rates remain controlled on telemetry - Continue Metoprolol Succ 25 mg at bedtime - Continue Eliquis but renally dose at 2.5 mg p.o. twice daily given creatinine greater than 1.5, age greater than 80 #CKD stage III-question of MILTON on admission but creatinine seems to be remaining stable at 1.5 despite IV fluids, this is likely his new baseline - Follow BMP periodically - Renally dose medications-changed Eliquis to 2.5 mg twice daily - Good BP control #HTN-BP was uncontrolled and now improved with adding amlodipine - Started amlodipine 2.5mg daily - continue Toprol-XL 25 mg p.o. at bedtime - Consider adding on ARB or Entresto given history of heart failure, but not in the setting of acute roger stroke-do not want to drop his blood pressure too low DVT prophylaxis-Eliquis Disposition-medically stable for discharge, awaiting rehab placement-denied insurance authorization to [facility]. Referral now made to [facility]- awaiting repeat authorization for halfway facility-not likely till 11/04. If that is denied, patient will go home with home health Admission and Anticipated Discharge Date Admission Date: October 29, 2025 Subjective Doing just fine overnight and this morning. Up and about. Independent. Still working with PT and OT and doing his strengthening. Lengthy discussion with the patient and his caregiver who is here at the bedside. I think given his very high underlying functional status a stint in acute rehab for structured and more aggressive therapy will be beneficial to him over the short-term. Case manag nayeli is working on options. Patient and caregiver both completed treatment at this time. Otherwise no new events or concerns per nursing staff. Eating and drinking fine. No concerns with bowel or bladder function Physical Exam Constitutional: WD/WN, vitals as above Respiratory: normal respiratory effort, lungs clear to auscultation Cardiovascular: Rate/Rhythm: regular rate and + irregularly irregular Heart Sounds: no murmur Extremities: no edema Gastrointestinal (Abdomen): normal bowel sounds, soft, nontender, no hepatosplenomegaly Neurologic: CN's II-XI intact bilaterally (Except mild left facial droop) and + focal motor deficit (4/5 strength in left upper and lower extremities, otherwise 5/5 throughout); not confused GCS [id number] Psychiatric: A+Ox3, euthymic affect Results & Data Results & Data Vital Signs (Past 12 Hours) Vital Signs Temp Pulse Resp BP Pulse Ox O2 Del Method 11/05/25 11:54 36.3 C L 88 18 126/85 97 Room Air 11/05/25 08:10 Room Air 11/05/25 07:50 36.4 C L 72 16 115/76 99 Room Air Laboratory Results 11/05/25 11/05/25 11/04/25 12:15 08:26 20:06 POC Glucose 145 H 123 H 164 H 11/04/25 17:00 POC Glucose 121 H PG Care Time/CCT Total # of Minutes Spent Total Time Spent with Patient: Total time spent is greater than 50% in coordination of care (as documented) at patient's floor/unit and/or counseling patient: Coding Level of Care Code 15018 SUB INP/OBS CARE 12/04MIN Diagnoses Right pontine CVA I63.50 Diabetes mellitus, type 2 E11.9 MILTON (acute kidney injury) N17.9 Chronic atrial fibrillation I48.20
--- NOTE | 2025-11-06 17:17 | Hospitalist Progress Note ---
Date of Service November 06, 2025 Assessment & Plan (1) Right pontine CVA: (2) Diabetes mellitus, type 2: (3) MILTON (acute kidney injury): (4) Chronic atrial fibrillation: Plan This patient is an 85 yo M with a history of DM2, seizure disorder, permanent atrial fibrillation on Eliquis, CKD stage III, HTN, who presents with left sided weakness, left facial droop x 1 week, found to have right roger acute ischemic CVA. #Acute CVA R roger w/ left hemiparesis and left facial droop-MRI confirmed stroke. Continues to have 4/5 weakness on left side of the body and left facial droop with some slight improvement since admission. BPs are controlled now with adding amlodipine. MRA head and neck negative for significant stenoses or large vessel occlusion. Echocardiogram negative bubble study, with mildly reduced EF 40-45%, mild-moderate aortic stenosis, mild MR, with inferior wall akinesis and apical akinesis, no thrombus-similar to previous. Lipid panel is uncontrolled with total cholesterol 230, LDL elevated 175. He has permanent rate controlled atrial fibrillation on the alarm security or surveillance monitor and had been on Eliquis at the time of his stroke. This was likely a small vessel thrombotic stroke not related to atrial fibrillation. - Started ASA 81mg daily to be taken in addition to his Eliquis 2.5 mg p.o. twice daily - Started atorvastatin increased to 80 mg daily for highest intensity statin - Continue good BP control and diabetes control-his diabetes was previously severely uncontrolled with A1c of 15.9% and is now improved - Awaiting rehab disposition-insurance denied acute rehab, now awaiting approval of half-way facility - Given his high underlying functional status structured aggressive rehab is likely to provide the best outcome and recovery, no change, pt and caregiver remain in agreement. -Family at bedside today and also in agreement of progressive structured rehab - SGLT2i would be indicated but his renal function likely prevents this, at least for the short-term #DMT2 with neuropathy-on metformin 1000mg BID at home and his HgbA1c has improved dramatically along with dietary changes in the last 7 months from 15.9% down to 7.4% - Given CKD/Age/BMI, pt is borderline CrCl 33 and ideally should avoid metformin, but it does seem to be working well for him so we will continue on discharge - Could consider starting Januvia 50mg daily on discharge - SGLT2i would be indicated due to cerebrovascular disease, but renal function prevents this - Diabetic diet - Accuchecks ac and hs, generally at goal # CAD s/p CABG/ischemic cardiomyopathy/chronic HFmrEF-no acute issues or chest pains. EF similar to previous at 40-45%. He is euvolemic - Continue Toprol-XL - Renal function prohibits SGLT2i, could consider adding ARB or Entresto on as an outpatient but defer to cardiology - Continue aspirin, and high intensity statin added this admission - Follow-up with cardiology as an outpatient #Seizure-no acute issues - Continue Keppra # Permanent afib-rates remain controlled on telemetry - Continue Metoprolol Succ 25 mg at bedtime - Continue Eliquis but renally dose at 2.5 mg p.o. twice daily given creatinine greater than 1.5, age greater than 80 #CKD stage III-question of MILTON on admission but creatinine seems to be remaining stable at 1.5 despite IV fluids, this is likely his new baseline - Follow BMP periodically - Renally dose medications-changed Eliquis to 2.5 mg twice daily - Good BP control #HTN-BP was uncontrolled and now improved with adding amlodipine - Started amlodipine 2.5mg daily - continue Toprol-XL 25 mg p.o. at bedtime - Consider adding on ARB or Entresto given history of heart failure, but not in the setting of acute roger stroke-do not want to drop his blood pressure too low DVT prophylaxis-Eliquis Disposition-medically stable for discharge, awaiting rehab placement-denied insurance authorization to [facility]. Referral now made to [facility]- awaiting repeat authorization for half-way facility-not likely till 11/04. If that is denied, patient will go home with home health Admission and Anticipated Discharge Date Admission Date: October 29, 2025 Subjective Doing well overnight. No new acute complaints or concerns. He did move to a new room. Family was present during discussion today they are in agreement that he is very active and a structured and aggressive therapy program is likely to be very beneficial to him. He still has some residual deficit but it seems to b e improving day or day basis. Otherwise no new complaints or concerns. No events per nursing staff. Good oral intake and no concerns with bowel or bladder function Physical Exam Constitutional: WD/WN, vitals as above Respiratory: normal respiratory effort, lungs clear to auscultation Cardiovascular: Rate/Rhythm: regular rate and + irregularly irregular Heart Sounds: no murmur Extremities: no edema Gastrointestinal (Abdomen): normal bowel sounds, soft, nontender, no hepatosplenomegaly Neurologic: CN's II-XI intact bilaterally (Except mild left facial droop) and + focal motor deficit (4/5 strength in left upper and lower extremities, otherwise 5/5 throughout); not confused GCS [id number] Psychiatric: A+Ox3, euthymic affect Results & Data Results & Data Vital Signs (Past 12 Hours) Vital Signs Temp Pulse Resp BP Pulse Ox O2 Del Method 11/06/25 14:49 36.2 C L 80 15 122/74 96 Room Air 11/06/25 07:22 36.2 C L 89 16 122/71 97 Room Air Laboratory Results 11/06/25 11/06/25 11/06/25 16:31 11:21 07:38 POC Glucose 141 H 139 H 119 H 11/05/25 20:25 POC Glucose 105 H PG Care Time/CCT Total # of Minutes Spent Total Time Spent with Patient: Total time spent is greater than 50% in coordination of care (as documented) at patient's floor/unit and/or counseling patient: Coding Level of Care Code 87622 SUB INP/OBS CARE 12/04MIN Diagnoses Right pontine CVA I63.50 Diabetes mellitus, type 2 E11.9 MILTON (acute kidney injury) N17.9 Chronic atrial fibrillation I48.20
--- NOTE | 2025-11-07 15:15 | Hospitalist Progress Note ---
Date of Service November 07, 2025 Assessment & Plan (1) Right pontine CVA: (2) Diabetes mellitus, type 2: (3) MILTON (acute kidney injury): (4) Chronic atrial fibrillation: Plan This patient is an 85 yo M with a history of DM2, seizure disorder, permanent atrial fibrillation on Eliquis, CKD stage III, HTN, who presents with left sided weakness, left facial droop x 1 week, found to have right roger acute ischemic CVA. #Acute CVA R roger w/ left hemiparesis and left facial droop -MRI confirmed stroke. Continues to have 4/5 weakness on left side of the body and left facial droop with some slight improvement since admission. BPs are controlled now with adding amlodipine. MRA head and neck negative for significant stenoses or large vessel occlusion. -Echocardiogram negative bubble study, with mildly reduced EF 40-45%, mild- moderate aortic stenosis, mild MR, with inferior wall akinesis and apical akinesis, no thrombus-similar to previous. Lipid panel is uncontrolled with total cholesterol 230, LDL elevated 175. -He has permanent rate controlled atrial fibrillation on the monitoring manager and had been on Eliquis at the time of his stroke. - Started ASA 81mg daily to be taken in addition to his Eliquis 2.5 mg p.o. twice daily - Started atorvastatin increased to 80 mg daily for highest intensity statin - Continue good BP control and diabetes control-his diabetes was previously severely uncontrolled with A1c of 15.9% and is now improved - will need rehab #DMT2 with neuropathy-on metformin 1000mg BID at home and his HgbA1c has improved dramatically along with dietary changes in the last 7 months from 15.9% down to 7.4% - Given CKD/Age/BMI, pt is borderline CrCl 33 and ideally should avoid metformin, but it does seem to be working well for him so we will continue on discharge - Could consider starting Januvia 50mg daily on discharge - SGLT2i would be indicated due to cerebrovascular disease, but renal function prevents this - Diabetic diet - Accuchecks ac and hs, generally at goal # CAD s/p CABG/ischemic cardiomyopathy/chronic HFmrEF-no acute issues or chest pains. EF similar to previous at 40-45%. He is euvolemic - Continue Toprol-XL - Renal function prohibits SGLT2i, could consider adding ARB or Entresto on as an outpatient but defer to cardiology - Continue aspirin, and high intensity statin added this admission - Follow-up with cardiology as an outpatient #Seizure-no acute issues - Continue Keppra # Permanent afib-rates remain controlled on telemetry - Continue Metoprolol Succ 25 mg at bedtime - Continue Eliquis but renally dose at 2.5 mg p.o. twice daily given creatinine greater than 1.5, age greater than 80 #CKD stage III-question of MILTON on admission but creatinine seems to be remaining stable at 1.5 despite IV fluids, this is likely his new baseline - Follow BMP periodically - Renally dose medications-changed Eliquis to 2.5 mg twice daily - Good BP control #HTN-BP was uncontrolled and now improved with adding amlodipine - Started amlodipine 2.5mg daily - continue Toprol-XL 25 mg p.o. at bedtime - Consider adding on ARB or Entresto given history of heart failure, but not in the setting of acute roger stroke-do not want to drop his blood pressure too low DVT prophylaxis-Eliquis Disposition-medically stable for discharge, awaiting rehab placement-denied insurance authorization to [facility]. Referral now made to [facility]- awaiting repeat authorization for half-way facility- If that is denied, patient will go home with home health Admission and Anticipated Discharge Date Admission Date: October 29, 2025 Subjective patient seen and examined, feels overall better Review of Systems Review of Systems: All systems reviewed are negative, apart from the ones contained in the history. Physical Exam Physical Exam: The patient is awake, alert and oriented 3, well developed and well nourished, normocephalic and atraumatic, lying in bed and in no acute distress. HEENT--PERRL, EOMI, mucous membranes and oropharynx mildly dry Neck--supple. No JVD. No bruits. Thyroid normal, trachea midline, no adenopathy. Heart--normal S1 and S2. No murmurs, rubs or gallops. Lungs--clear bilaterally, no respiratory distress, no accessory muscle use. Abdomen--normal bowel sounds and soft. Extremities--no cyanosis or clubbing. No edema. Dermatologic--normal skin turgor, normal color, no abnormal lymph nodes, no rash. Neurologic--cranial nerves II through XII grossly intact. Rheumatologic--normal range of motion. Psychiatric--normal affect. Results & Data Results & Data Vital Signs (Past 12 Hours) Vital Signs Temp Pulse Resp BP Pulse Ox O2 Del Method 11/07/25 15:06 98.1 F 88 16 114/72 94 Room Air 11/07/25 07:24 97.7 F 84 16 116/73 93 Room Air PG Care Time/CCT Total # of Minutes Spent Total Time Spent with Patient: Total time spent is greater than 50% in coordination of care (as documented) at patient's floor/unit and/or counseling patient: Coding Level of Care Code 56974 SUB INP/OBS CARE 2/35MIN Diagnoses Right pontine CVA I63.50 Diabetes mellitus, type 2 E11.9 MILTON (acute kidney injury) N17.9 Chronic atrial fibrillation I48.20 Time Spent (min) 35
[2025-11-07 23:55] VITALS: O2SAT 95
[2025-11-08 09:16] VITALS: BP 110/77; RESP 21; TEMP 98.1
[2025-11-08 10:44] LABS: Hematocrit (blood only) 44.9 % (42.0-52.0); Hemoglobin 15.7 g/dL (14.0-18.0); Mean Corpuscular Hemoglobin 31.3 pg (25.0-34.0); Mean Corpuscular Volume 89.6 fL (80.0-100.0); Platelet Count 190 K/uL (130-400); RDW Standard Deviation 38.5 fL (36.4-46.3); Red Blood Count 5.01 M/uL (4.70-6.10); White Blood Count 6.61 K/ul (4.8-10.8)
[2025-11-08 11:06] LABS: Anion Gap 10.0 (3-11); Blood Urea Nitrogen 37.0 mg/dl (6-23); Calcium 9.4 mg/dl (8.6-10.3); Carbon Dioxide 25.0 mmol/L (21-32); Chloride 100.0 mmol/L (98-107); Creatinine Clr Calc Pharmacy 31.3 ml/min; Glucose 188.0 mg/dl (70-99(Fasting)); Potassium 4.5 mmol/L (3.5-5.1); Sodium 135.0 mmol/L (136-145)
--- NOTE | 2025-11-08 11:33 | Discharge Summary ---
Date of Service November 08, 2025 Admission HPI Per Admitting Provider Armando is an 85 yo M with a pmhx of DMT2, Afib, h/o seizure-like activity on Keppra, CKD and h/o CHF who presents to the ER today accompanied by a friend for evaluation of left sided weakness. Symptoms started approx 1 day after having a tooth extracted which was performed 1 week ago. He initially thought it could be related to the novocaine administered for the procedure but when the symptoms persisted, friends/family encouraged him to seek evaluation. He has endorsed difficulty ambulating related to his weakness. He denies difficulty swallowing or slurred speech. He denies dysuria, fever, chills, chest pain, dyspnea, cough, abd pain, n/v/d. He has no prior h/o MO/stenting/PPM or CVA. He denies taking aspirin. Does have a h/o stroke-like symptoms that prompted an admission back in March 2025 for which his MRI was negative. Was found to have new onset afib. Echo during that admission noted to have LVEF 40-45% with global hypokinesis of left ventricle. EEG was abnormal and suggestive of epileptic discharge for which he was started on Keppra. His work up today notes a negative trop, EKG afib/nonacute, mild MILTON with a creat of 1.51, otherwise labs unremarkable. He was deemed a nonTPA candidate given duration of symptoms. He has been referred for observation for further care. Admission Exam (Per Admitting) Constitutional The patient is awake, alert and oriented 3, well developed and well nourished, normocephalic and atraumatic, lying in bed and in no acute distress. HEENT--PERRL, EOMI, mucous membranes and oropharynx mildly dry Neck--supple. No JVD. No bruits. Thyroid normal, trachea midline, no adenopathy. Heart--normal S1 and S2. No murmurs, rubs or gallops. Lungs--clear bilaterally, no respiratory distress, no accessory muscle use. Abdomen--normal bowel sounds and soft. Extremities--no cyanosis or clubbing. No edema. Dermatologic--normal skin turgor, normal color, no abnormal lymph nodes, no rash. Neurologic--cranial nerves II through XII grossly intact. Rheumatologic--normal range of motion. Psychiatric--normal affect. Discharge Data Consultations 10/28/25 15:25 ED Decision to Admit Stat Hospital Course (1) Right pontine CVA: (2) Diabetes mellitus, type 2: (3) MILTON (acute kidney injury): (4) Chronic atrial fibrillation: Plan This patient is an 85 yo M with a history of DM2, seizure disorder, permanent atrial fibrillation on Eliquis, CKD stage III, HTN, who presents with left sided weakness, left facial droop x 1 week, found to have right roger acute ischemic CVA. #Acute CVA R roger w/ left hemiparesis and left facial droop -MRI confirmed stroke. Continues to have 4/5 weakness on left side of the body and left facial droop with some slight improvement since admission. BPs are controlled now with adding amlodipine. MRA head and neck negative for significant stenoses or large vessel occlusion. -Echocardiogram negative bubble study, with mildly reduced EF 40-45%, mild- moderate aortic stenosis, mild MR, with inferior wall akinesis and apical akinesis, no thrombus-similar to previous. Lipid panel is uncontrolled with total cholesterol 230, LDL elevated 175. -He has permanent rate controlled atrial fibrillation on the monitoring tech and had been on Eliquis at the time of his stroke. - Started ASA 81mg daily to be taken in addition to his Eliquis 2.5 mg p.o. twice daily - Started atorvastatin increased to 80 mg daily for highest intensity statin - Continue good BP control and diabetes control-his diabetes was previously severely uncontrolled with A1c of 15.9% and is now improved - He is ambulatory and has great strenght in his extremities he expressed a willingness to go home with home health #DMT2 with neuropathy-on metformin 1000mg BID at home and his HgbA1c has improved dramatically along with dietary changes in the last 7 months from 15.9% down to 7.4% - Given CKD/Age/BMI, pt is borderline CrCl 33 and ideally should avoid metformin, but it does seem to be working well for him so we will continue on discharge - Could consider starting Januvia 50mg daily on discharge - SGLT2i would be indicated due to cerebrovascular disease, but renal function prevents this - Diabetic diet - Accuchecks ac and hs, generally at goal # CAD s/p CABG/ischemic cardiomyopathy/chronic HFmrEF-no acute issues or chest pains. EF similar to previous at 40-45%. He is euvolemic - Continue Toprol-XL - Renal function prohibits SGLT2i, could consider adding ARB or Entresto on as an outpatient but defer to cardiology - Continue aspirin, and high intensity statin added this admission - Follow-up with cardiology as an outpatient #Seizure-no acute issues - Continue Keppra # Permanent afib-rates remain controlled on telemetry - Continue Metoprolol Succ 25 mg at bedtime - Continue Eliquis but renally dose at 2.5 mg p.o. twice daily given creatinine greater than 1.5, age greater than 80 #CKD stage III-question of MILTON on admission but creatinine seems to be remaining stable at 1.5 despite IV fluids, this is likely his new baseline - Follow BMP periodically - Renally dose medications-changed Eliquis to 2.5 mg twice daily - Good BP control #HTN-BP was uncontrolled and now improved with adding amlodipine - Started amlodipine 2.5mg daily - continue Toprol-XL 25 mg p.o. at bedtime - Consider adding on ARB or Entresto given history of heart failure, but not in the setting of acute roger stroke-do not want to drop his blood pressure too low DVT prophylaxis-Eliquis Disposition-Home with home health Coding Level of Care Code 15458 INP/OBS DISCH >30 MIN Diagnoses Right pontine CVA I63.50 Diabetes mellitus, type 2 E11.9 MILTON (acute kidney injury) N17.9 Chronic atrial fibrillation I48.20 Time Spent (min) 35
[2025-11-08] MEDS: STROKE PATIENT DISCHARGE STA ×2 (11:38→15:50)
--- NOTE | 2025-11-08 14:29 | CT Scan Report ---
CT facial bones wo con CLINICAL HISTORY: 85 years-old Male presenting with jaw pain. Acute facial pain COMPARISON STUDY: Head CT 10/28/2025 TECHNIQUE: High-resolution CT scan of the facial bones is performed. Images are reviewed in the axia l, sagittal, and coronal planes. IV contrast was not administered for this examination. A dose lower ing technique was utilized adhering to the principles of ALARA. CT DOSE: 684.48 mGy.cm FINDINGS: The imaged intracranial structures appear unremarkable. Unremarkable orbits. Multilevel degenerative changes of the cervical spine. Calcifications of the carotid bulbs. The patient is nearly entirely ed entulous. There is a single right mandibular molar with large periapical cyst and adjacent cortical d ehiscence without adjacent inflammatory changes. The left cemented the gland is asymmetrically enlarg ed and heterogeneous with adjacent inflammatory stranding. There are several calcifications noted rose ng the course of the left submandibular duct measuring up to 4 mm. Possible solution mild ductal dila tion. No fluid collections. IMPRESSION: 1. Acute sialoadenitis of the left submandibular gland secondary to numerous subcentimeter ductal annia loliths. 2. No fluid collection to suggest abscess. 3. No lymphadenopathy. ACT 112: Negative or not required by law. The above report was generated using voice recognition software. It may contain grammatical, syntax o r spelling errors. Electronically signed by: Himanshu Nettles M.D. 11/08/2025 2:26 PM
[2025-11-08 15:11] VITALS: PULSE 66
== END 2025-11-08 15:15 | disposition home health service (06) | DRG 65 ==
LOC: EDINP 13:02 → ED 13:02 → 2N 18:39 → SUATTDRO 10-29 10:25 → 3W 11-05 14:28